=== PATIENT | male | born 1940 | race Caucasian/White ===

== ENCOUNTER → 2016-02-21 | Outpatient (CLI) | payer MEDICARE ==
--- NOTE | 2016-02-21 15:50 | US ---
EXAMINATION TYPE: US bladder DATE OF EXAM: 02/21/2016 3:33 PM COMPARISON: NONE CLINICAL HISTORY: nocturia EXAM MEASUREMENTS: full bladder volume: 143.23ml Post Void Residual Volume: 69.9ml Transabdominal pelvic ultrasound scanning performed. Color Doppler performed to assess ureteral jets. Bilateral Jets seen: yes Normal Post Void Residual (less than 50ml): no The prostate is enlarged and shows an inferior impression on the bladder. Postvoid residual volume is elevated. IMPRESSION: Correlate for bladder outlet obstruction.
== END ==
LOC: RADUSWWP 15:01
PROVIDERS: ATTEND Family Medicine
DX: R35.1 Nocturia (principal)
CPT/HCPCS: 76857

== ENCOUNTER → 2017-04-24 | Outpatient (CLI) | payer MEDICARE ==
[2017-04-24 13:30] LABS: Blood Urea Nitrogen 12 mg/dL (9-20)
--- NOTE | 2017-04-24 23:23 | CT ---
EXAMINATION TYPE: CT angio abdomen DATE OF EXAM: 04/24/2017 COMPARISON: 05/26/2013 HISTORY: 77-year-old male follow up abdominal aortic aneurysm. CT DLP: 1033 mGycm, Automated Exposure Control for Dose Reduction was Utilized. Technique: CT scan of the abdomen is performed with IV Contrast, patient injected with 100 mL of Omni paque 350. Coronal and sagittal MIP reconstructions performed. 3-D reconstructions generated on a [employer] workstation. FINDINGS: Heart is normal size without pericardial effusion. Some strandy atelectasis at the inferior lingula. No pleural effusion. Tiny hiatal hernia. Ectatic descending thoracic aorta at 2.8 cm. There is eccentric irregular plaque anteriorly at the di aphragmatic hiatus and a possible severe stenosis at the celiac artery origin. Replaced right hepatic artery from the SMA. SMA origin is patent. Patent mejía bilateral renal ar teries. Bilobed infrarenal AAA with the more superior aneurysm spanning 5.4 cm measuring 4.7 x 4.6 cm on heide nal and sagittal series, respectively. There is prominent circumferential plaque and thrombus narrowi ng the patent lumen to 2.8 cm. Enlarged from 3.4 cm, previously. The more inferior aneurysm extends 3.5 cm to the bifurcation measuring 3.6 x 3.2 cm on coronal and sa gittal series, respectively. Crescentic plaque and thrombus is present. Enlarged from 2.7 cm, previou sly. Moderate atherosclerotic calcifications continue into the iliac arteries. There is ectasia 1.9 cm of the right common iliac artery and a 1.7 cm of the left common iliac artery. Tiny subcentimeter hypodensity left hepatic dome too small for accurate CT characterization, probable cyst. Gallbladder, adrenal glands, left kidney, spleen, and pancreas show no gross abnormality. A 1.8 cm right lateral cortical cyst is slightly enlarged in the interval. Scattered nonenlarged mesenteric lymph nodes. No mesenteric or retroperitoneal lymphadenopathy. Scattered mild stool burden without pericolonic inflammatory change. Small fatty umbilical hernia. Bones: Degenerative changes at the SI joints and within the lower lumbar spine. No osseous destructiv e process. IMPRESSION: 1. Two consecutive fusiform infrarenal AAA's. The more superior aneurysm measures 4.7 cm increased f rom 3.4 cm in 2014 and has prominent circumferential plaque/thrombus narrowing the lumen to 2.8 cm. 2. The more inferior aneurysm extends to the bifurcation measuring 3.6 cm versus 2.7 cm, previously. 3. Ectatic common iliac arteries measuring 1.9 and 1.7 cm on the right and left sides, respectively. 4. Continued irregular plaque along the anterior wall of the upper abdominal aorta. However, there no w appears to be severe stenosis at the celiac artery origin.
== END | disposition home or self-care (01) ==
LOC: RADCTMAIN 12:44
PROVIDERS: ATTEND Thoracic Surgery (Cardiothoracic Vascular Surgery)
DX: I71.4 Abdominal aortic aneurysm, without rupture (principal); I72.3 Aneurysm of iliac artery
CPT/HCPCS: 82565; 84520; 74175; 36415; Q9967

== ENCOUNTER → 2018-09-01 | Day surgery (SDC) | payer MEDICARE ==
[2018-08-31 10:34] VITALS: BMI 29.1
[~2018-09-01] MED LIST: LACTATED RINGERS 1,000 ML IV SCH; LIDOCAINE 1% 20 ML VIAL (10MG/ML) FOR IV START INTRADERMA ONE; LIDOCAINE 1% INJ 10MG/ML (20 ML MDV) ONE; PROPOFOL 10 MG/ML 20 ML VIAL IV ONE; fentaNYL (PF) 50 MCG/ML 2 ML AMP ONE
[2018-09-01 11:24] VITALS: TEMP 98.5
--- NOTE | 2018-09-01 13:15 | P.PCN ---
Date of Procedure: 09/01/18 Description of Procedure: BRIEF HISTORY: Patient is a 78-year-old, pleasant, male who is seen for outpatient EGD. Has had approximately 10 months of abdominal pain. Previous visit to the ER with computed tomography scan performed showed no acute changes. He does have a history of chronic reflux treated with diet and lifestyle modifications as well as Prilosec. Increasing Prilosec to twice daily did not improve symptoms. He denied any dysphagia or odynophagia. Reports losing 20 pounds in the past year. PROCEDURE PERFORMED: Esophagogastroduodenoscopy with biopsy. PREOPERATIVE DIAGNOSIS: Epigastric abdominal pain, nausea, unintentional weight loss. ESTIMATED BLOOD LOSS: Minimal. IV sedation per anesthesia. PROCEDURE: After informed consent was obtained, the patient was brought into the endoscopy unit. IV sedation was administered by Anesthesia under continuous monitoring. Initially the Olympus GIF-190 video endoscope was inserted into the mouth. Esophagus intubated without any difficulty. It was gradually advanced into the stomach and duodenum and carefully examined. The bulb and the second part of the duodenum appeared normal, with biopsies taken. The scope at this time was withdrawn to the stomach, adequately insufflated with air, and upon careful examination, mucosa of the antrum, body, cardia and the fundus appeared normal, except for diffuse mild erythema in the antrum and body suggestive of mild gastritis with biopsies taken. The scope was then withdrawn into the esophagus. The GE junction was located at 421 cm from the incisors. The esophagus appeared normal. There were no erosions or ulcerations seen and the patient tolerated the procedure well. IMPRESSION: 1. Mild gastritis antrum body, biopsied. 2. Duodenal biopsies. RECOMMENDATIONS: The findings of this examination were discussed with the patient and his friend. Okay to resume diet. Await pathology from biopsies. Continue current medical management. May benefit from colonoscopy given remote history of last procedure and persistence of symptoms if clinically the patient does not improve.
[2018-09-01 13:42] VITALS: BP 148/68; PULSE 69; RESP 18
== END | disposition home or self-care (01) ==
LOC: ORWHC2ENDO 10:56
PROVIDERS: ATTEND Internal Medicine
DX: K29.50 Unspecified chronic gastritis without bleeding (principal); Z87.891 Personal history of nicotine dependence; Z88.8 Allergy status to other drugs, medicaments and biological substances; Z79.899 Other long term (current) drug therapy; E78.5 Hyperlipidemia, unspecified; K21.9 Gastro-esophageal reflux disease without esophagitis
CPT/HCPCS: 88305; 43239; J2001; J3010; J2704

== ENCOUNTER → 2018-11-10 | Outpatient (CLI) | payer MEDICARE ==
--- NOTE | 2018-11-10 16:22 | CT ---
EXAMINATION TYPE: CT angio abdomen pelvis DATE OF EXAM: 11/10/2018 COMPARISON: 10/20/2017 HISTORY: AAA CT DLP: 649.7 mGycm CONTRAST: CTA thoracic and abdominal aorta with 3-D reconstruction is performed without Oral Contrast and with IV Contrast, patient injected with 100 mL of Isovue 300. Contrast CTA of the abdominal aorta was performed from the lung bases through the base of the pelvis. 3-D reconstruction imaging obtained at a separate workstation. CONTRAST CT ABDOMEN AND PELVIS ABDOMINAL AORTA: Renal abdominal aortic aneurysm again noted with 3 cm The renal artery on the right. Aneurysm measures 5.2 cm AP dimension with extensive mural thrombus. L umen is patent. This has progressed slightly from prior AP dimension of 4.9 cm. Aneurysm extends to t he aortic bifurcation. Iliac vessels are ectatic but nonaneurysmal. No evidence for dissection or per iaortic collection. LIVER/GB- No significant abnormality is seen. PANCREAS- No significant abnormality is seen. SPLEEN- No significant abnormality is seen. ADRENALS- No significant abnormality is seen. KIDNEYS/BLADDER-stable right renal cyst. BOWEL- No Significant abnormality GENITAL ORGANS: No gross abnormality seen. LYMPH NODES- No greater than 1cm abdominal or pelvic lymph nodes are appreciated. OSSEOUS STRUCTURES- No significant abnormality is seen. OTHER-containing umbilical hernia. IMPRESSION- Mildly progressive infrarenal abdominal aortic aneurysm at 5.2 cm AP dimension versus 4.9 cm previous ly.
== END ==
LOC: RADCTMAIN 12:51
PROVIDERS: ATTEND Thoracic Surgery (Cardiothoracic Vascular Surgery)
DX: I71.4 Abdominal aortic aneurysm, without rupture (principal)
CPT/HCPCS: 82565; 84520; 36415; 74174; Q9967

== ENCOUNTER → 2019-05-04 | Outpatient (CLI) | payer MEDICARE ==
--- NOTE | 2019-05-04 15:25 | CT ---
EXAMINATION TYPE: CT angio abdomen pelvis DATE OF EXAM: 05/04/2019 COMPARISON: 11/10/2018 HISTORY: Follow up scan per patient CT DLP: 764 mGycm CONTRAST: CTA thoracic and abdominal aorta with 3-D reconstruction is performed without Oral Contrast and with IV Contrast, patient injected with 100 mL of Isovue 370. Contrast CTA of the abdominal aorta was performed from the lung bases through the base of the pelvis . 3-D reconstruction imaging obtained at a separate workstation. . CONTRAST CT ABDOMEN AND PELVIS Lung bases: ABDOMINAL AORTA: Infrarenal abdominal aortic aneurysm redemonstrated with maximal AP dimension curren tly measured at 5.4 cm versus 5.3 cm previously. Mural thrombus noted extending to the level of the b ifurcation. Iliac vessels are ectatic, nonaneurysmal. No evidence for dissection. Visualized branch v essels opacify normally. LIVER/GB- No significant abnormality is seen. PANCREAS- No significant abnormality is seen. SPLEEN- No significant abnormality is seen. ADRENALS- No significant abnormality is seen. KIDNEYS/BLADDER-3 mm nonobstructing calculus mid pole left kidney. Simple cyst midpole right kidney. BOWEL- No Significant abnormality GENITAL ORGANS: No gross abnormality seen. LYMPH NODES- No greater than 1cm abdominal or pelvic lymph nodes are appreciated. OSSEOUS STRUCTURES- No significant abnormality is seen. OTHER- No significant abnormality is seen. IMPRESSION- Infrarenal abdominal aortic aneurysm redemonstrated with maximal AP dimension currently measured at 5.4 cm versus 5.3 cm previously. Mural thrombus noted extending to the level of the bifurcation.
== END | disposition home or self-care (01) ==
LOC: RADCTMAIN 13:14
PROVIDERS: ATTEND Surgery
DX: I74.09 Other arterial embolism and thrombosis of abdominal aorta (principal); I71.4 Abdominal aortic aneurysm, without rupture
CPT/HCPCS: 82565; 84520; 36415; 74174; Q9967

== ENCOUNTER → 2019-07-16 | Outpatient (CLI) | payer MEDICARE | END | disposition home or self-care (01) | LOC: LABWHC1 09:52 | PROVIDERS: ATTEND Surgery | DX: U07.1 COVID-19 (principal) ==

== ENCOUNTER 2019-07-20 05:54 | Inpatient (IN) | payer MEDICARE ==
[2019-07-16 12:07] VITALS: BMI 31.8
[~2019-07-20 05:54] MED LIST changes: +DEXAMETHASONE SOD PHOSPHATE 10 MG/ML 1 ML VIAL IV ONE; +HYDROmorphone 0.5 MG/0.5 ML SYRINGE IVP PRN; +LIDOCAINE 1% (10MG/ML) FOR IV START INTRADERMA PRN; -LIDOCAINE 1% 20 ML VIAL (10MG/ML) FOR IV START INTRADERMA ONE; -LIDOCAINE 1% INJ 10MG/ML (20 ML MDV) ONE; +MIDAZOLAM 2 MG/2 ML VIAL IV PRN; +ONDANSETRON 4 MG/2 ML VIAL IVP ONE; -PROPOFOL 10 MG/ML 20 ML VIAL IV ONE; +SODIUM CHLORIDE 0.9% 1,000 ML in EMPTY BAG 1 BAG IV ONE; -fentaNYL (PF) 50 MCG/ML 2 ML AMP ONE
[2019-07-20] MEDS ORDERED: SODIUM CHLORIDE 0.9% 1,000 ML IV ONE ×2 (06:40→10:57)
[2019-07-20 06:50] LABS: Basophils # (A) 0.1 k/uL (0-0.2); Basophils % (A) 1 %; Eosinophils # (A) 0.4 k/uL (0-0.7); Eosinophils % (A) 4 %; HCT 44.1 % (39.0-53.0); HGB 14.4 gm/dL (13.0-17.5); Lymphocytes # (A) 3.2 k/uL (1.0-4.8); Lymphocytes % (A) 33 %; MCH 30.7 pg (25.0-35.0); MCHC 32.6 g/dL (31.0-37.0); MCV 93.9 fL (80.0-100.0); Mean Platelet Volume 6.8; Monocytes # (A) 0.6 k/uL (0-1.0); Monocytes % (A) 6 %; Neutrophils # (A) 5.3 k/uL (1.3-7.7); Neutrophils % (A) 54 %; Platelet Count 245 k/uL (150-450); RDW 13.4 % (11.5-15.5); WBC 9.7 k/uL (3.8-10.6)
[2019-07-20 06:59] LABS: African American GFR (CKD) >90 (>60 ml/min/1.73 sqM); Anion Gap 9 mmol/L; Blood Urea Nitrogen 14 mg/dL (9-20); Calcium 9.5 mg/dL (8.4-10.2); Carbon Dioxide 27 mmol/L (22-30); Chloride 105 mmol/L (98-107); Glucose 103 mg/dL (74-99); Non-African American GFR(CKD) 83 (>60 ml/min/1.73 sqM); Potassium 4.2 mmol/L (3.5-5.1); Sodium 141 mmol/L (137-145)
[2019-07-20] MEDS ORDERED: ROCURONIUM BROMIDE 10 MG/ML 5 ML VIAL IV ONE (07:28)
[2019-07-20] MEDS ORDERED: PHENYLEPHRINE-0.9% NACL SYG 1 MG/10 ML SYRINGE ONE (07:28)
[2019-07-20] MEDS ORDERED: fentaNYL (PF) 50 MCG/ML 2 ML AMP ONE (07:28)
[2019-07-20] MEDS ORDERED: HYDROmorphone (PF) 1 MG/ML ONE (07:28)
[2019-07-20] MEDS ORDERED: MIDAZOLAM 2 MG/2 ML VIAL ONE (07:28)
[2019-07-20] MEDS ORDERED: PROPOFOL 10 MG/ML 20 ML VIAL IV ONE (07:28)
[2019-07-20] MEDS ORDERED: LIDOCAINE 1% INJ 10MG/ML (20 ML MDV) ONE (07:28)
[2019-07-20] MEDS ORDERED: NEOSTIGMINE 1 MG/ML 10 ML VIAL ONE (07:28)
[2019-07-20] MEDS ORDERED: HEPARIN SODIUM,PORCINE 10,000 UNIT/ML 1 ML VIAL ONE (07:28)
[2019-07-20] MEDS ORDERED: GLYCOPYRROLATE 0.2 MG/ML 2 ML VIAL ONE (07:28)
[2019-07-20] MEDS ORDERED: SUCCINYLCHOLINE CHLORIDE 100 MG/5 ML SYR IV ONE (07:28)
[2019-07-20] MEDS ORDERED: LIDOCAINE 1% INJ 10MG/ML (20 ML MDV) SQ ONE (08:16)
[2019-07-20] MEDS ORDERED: HYDROcodone/APAP 5-325MG 1 EACH TAB PO PRN (09:56)
--- NOTE | 2019-07-20 09:56 | P.OP ---
Date of Procedure: 07/20/19 Preoperative Diagnosis: Infrarenal AAA 6.1 cm Postoperative Diagnosis: Infrarenal AAA 6.1 cm status post EVAR with small type II endoleak Procedure(s) Performed: 1. Endovascular aortic repair with ovation Ix device 2. Ultrasound-guided access of bilateral common femoral arteries 3. Percutaneous closure device placement bilateral femoral arteries Implants: Ovation graft Anesthesia: GETA Surgeon: Rhett Sebastian Apartment Leasing Agent #1: Sonya Bay Estimated Blood Loss (ml): 20 IV fluids (ml): 1,100 Urine output (ml): 250 Pathology: none sent Condition: stable Disposition: PACU Indications for Procedure: 79-year-old gentleman with history of infrarenal AAA now measuring 6.1 cm presents to the hospital for endovascular aortic repair. Operative Findings: Large infrarenal AAA Description of Procedure: After written informed consent was obtained the patient all risks benefits competitions were described the patient is brought to the endovascular suite and laid in a supine position. The area of the groins were prepped and draped in usual sterile fashion after appropriate anesthetic was performed per the anesthesiologist. A timeout was performed in normal fashion antibiotics were administered prior to incisions. Utilizing ultrasound the bilateral common femoral arteries were located and shown to have no stenosis and were patent. Utilizing a multipurpose needle and ultrasound the femoral arteries were cannulated. Guidewires were placed followed by 2 Perclose closure devices in each femoral artery were placed in normal fashion. 8-Polish sheaths were then placed in each groin and heparin was administered followed by serial ACTs. 035 Glidewire was then placed up the left femoral sheath followed by pigtail c atheter. The right Glidewire was replaced with a stiff Lunderquist wire which was placed at the descending aorta. A 26 mm ovation main body was then guided over the Lunderquist wire after removal of the 8-Polish sheath and placed at the L1 vertebra level. Utilizing the pigtail catheter and aortogram was obtained demonstrating good visualization of the renal arteries just above the aneurysm. The main body was then deployed in normal fashion just beneath the left renal artery which was the lowest. Once deployed polymer was placed and visualized under fluoroscopy. The Lunderquist wire was pulled into the graft to allow for good molding of the polymer. Pigtail catheter and Glidewire was withdrawn into the distal aorta. Utilizing the Glidewire the contralateral limb was cannulated followed by pigtail catheter which was spun to ensure cannulation. The pigtail catheter spun easily. A stiff Lunderquist wire was then placed through the pigtail catheter and the catheter was withdrawn to the fourth ring of the device and retrograde angiogram was obtained through the left femoral sheath and measurements were performed for contralateral limb. The contralateral limb was chosen to be a 16 x 160 mm device and this was placed in normal fashion. Once completed a Q50 balloon was placed over the Lunderquist and after 14 minutes were allowed to elapse the main body was finally deployed. Once deployed the Lunderquist wire was replaced into the descending aorta and the deployment sheath was removed on the right femoral. Due to the balloon was then utilized to mold the polymer. Pigtail catheter was then placed at the right femoral sheath and aligned with the half ring of the device and a retrograde angiogram was obtained demonstrating good visualization of the internal iliac artery. A 22 x 120 mm limb was chosen and this was deployed in normal fashion. Once completed balloon angioplasty throughout the entirety of the graft as well as the polymer ring once again was performed molding the graft through its entirety. This was done on one side with a 10 x 40 mm balloon as well as the Q50 on the other side. Final angiogram was then obtained after placement of the pigtail catheter above the graft demonstrating no evidence of a type I or type III endoleak. Lateral angiogram was also obtained which demonstrated a small type II endoleak coming from a inferior lumbar artery. At this time all guidewires and catheters were removed the sheath was removed and Perclose closure devices were secured for hemostasis area the right side hemostasis was obtained but the left had some bruising and therefore an 8-Polish Angio-Seal was utilized for hemostasis. Once hemostatic the area was cleansed and dressings were placed. Patient tolerated procedure well had palpable DP pulses at the conclusion of the procedure and was sent to PACU for recovery.
[2019-07-20] MEDS ORDERED: IOPAMIDOL-370 100ML BTL INJ ONE (10:03)
[2019-07-20 11:18] LABS: Glucose,Whole Blood 102 mg/dL (75-99)
[2019-07-20] MEDS: SODIUM CHLORIDE 0.9% 1,000 ML IV SCH ×2 (12:00→22:58)
[2019-07-20 12:27] LABS: Basophils % (A) 0 %; Eosinophils # (A) 0.2 k/uL (0-0.7); Eosinophils % (A) 2 %; HCT 43.1 % (39.0-53.0); HGB 13.2 gm/dL (13.0-17.5); Hypochromasia Slight; Lymphocytes # (A) 2.3 k/uL (1.0-4.8); Lymphocytes % (A) 24 %; MCH 29.4 pg (25.0-35.0); MCHC 30.7 g/dL (31.0-37.0); MCV 95.7 fL (80.0-100.0); Mean Platelet Volume 6.9; Monocytes # (A) 0.5 k/uL (0-1.0); Monocytes % (A) 5 %; Neutrophils # (A) 6.4 k/uL (1.3-7.7); Neutrophils % (A) 67 %; Platelet Count 191 k/uL (150-450); RBC 4.51 m/uL (4.30-5.90); RDW 13.6 % (11.5-15.5); WBC 9.5 k/uL (3.8-10.6)
[2019-07-20 12:49] LABS: African American GFR (CKD) >90 (>60 ml/min/1.73 sqM); Anion Gap 6 mmol/L; Blood Urea Nitrogen 12 mg/dL (9-20); Calcium 8.7 mg/dL (8.4-10.2); Carbon Dioxide 26 mmol/L (22-30); Chloride 107 mmol/L (98-107); Glucose 115 mg/dL (74-99); Non-African American GFR(CKD) 87 (>60 ml/min/1.73 sqM); Potassium 4.4 mmol/L (3.5-5.1); Sodium 139 mmol/L (137-145)
[2019-07-20] MEDS ORDERED: ONDANSETRON 4 MG/2 ML VIAL IVP PRN (13:56)
--- NOTE | 2019-07-20 15:19 | IR ---
Fluoroscopy HISTORY: Abdominal aortic aneurysm 18.4 minutes fluoroscopy time supplied to the referring clinician. 360 intraoperative C-arm images d ocument the procedure. See dictated report from vascular surgery.
[2019-07-20] MEDS: MAG HYDROX/AL HYDROX/SIMETH 30 ML CUP PO PRN (18:34)
[2019-07-20] MEDS ORDERED: ATORVASTATIN 20 MG TAB PO SCH (21:00)
[2019-07-21] MEDS: MAG HYDROX/AL HYDROX/SIMETH 30 ML CUP PO PRN (03:56)
[2019-07-21 05:49] LABS: Basophils % (A) 0 %; Eosinophils # (A) 0.1 k/uL (0-0.7); Eosinophils % (A) 1 %; HCT 38.3 % (39.0-53.0); Lymphocytes # (A) 1.6 k/uL (1.0-4.8); Lymphocytes % (A) 15 %; MCH 29.8 pg (25.0-35.0); MCHC 31.3 g/dL (31.0-37.0); MCV 95.2 fL (80.0-100.0); Mean Platelet Volume 7.2; Monocytes % (A) 9 %; Neutrophils # (A) 7.8 k/uL (1.3-7.7); Neutrophils % (A) 73 %; Platelet Count 169 k/uL (150-450); RBC 4.03 m/uL (4.30-5.90); RDW 13.6 % (11.5-15.5); WBC 10.7 k/uL (3.8-10.6)
[2019-07-21 06:03] LABS: African American GFR (CKD) >90 (>60 ml/min/1.73 sqM); Anion Gap 6 mmol/L; Blood Urea Nitrogen 13 mg/dL (9-20); Carbon Dioxide 27 mmol/L (22-30); Chloride 104 mmol/L (98-107); Glucose 102 mg/dL (74-99); Non-African American GFR(CKD) >90 (>60 ml/min/1.73 sqM); Potassium 4.1 mmol/L (3.5-5.1); Sodium 137 mmol/L (137-145)
[2019-07-21] MEDS ORDERED: PANTOPRAZOLE 40 MG TABLET PO SCH (07:30)
[2019-07-21] MEDS ORDERED: CHOLECALCIFEROL 1,000 UNIT TAB PO SCH (09:00)
[2019-07-21] MEDS ORDERED: FINASTERIDE 5 MG TAB PO SCH (09:00)
[2019-07-21] MEDS ORDERED: MULTIVITAMINS, THERA 1 EACH TAB PO SCH (09:00)
[2019-07-21] MEDS ORDERED: ASPIRIN 81 MG PO SCH (09:00)
[2019-07-21] MEDS ORDERED: ASCORBIC ACID 500 MG TAB PO SCH (09:00)
--- NOTE | 2019-07-21 09:43 | P.PN ---
Subjective Progress Note Date: 07/21/19 Patient seen and examined in the ICU. Patient is sitting up at the bedside without any complaints. There were no acute changes through the night. Patient ate breakfast is tolerating well. States no chest pain or shortness of breath. No bleeding from either femoral sites. Patient states he had some mild discomfort from acid reflux last night however was treated with medication which relieved the symptoms. Likely catheter has been discontinued. Arterial line remains intact. Objective - Vital Signs Vital signs: Vital Signs Temp 98.2 F 07/21/19 08:00 Pulse 77 07/21/19 08:00 Resp 16 07/21/19 08:00 BP 128/70 07/21/19 08:00 Pulse Ox 97 07/21/19 08:00 Intake & Output 07/20/19 07/21/19 07/21/19 18:59 06:59 18:59 Intake Total 1480 960 160 Output Total 1185 495 210 Balance 295 465 -50 Weight 106.1 kg Intake: IV 1480 960 160 Sodium Chloride 0.9% 1, 480 960 160 000 ml @ 80 mls/hr IV . [id number] [facility] Rx#:[id number] Output: Urine 1185 495 210 Other: Voiding Method Indwelling Catheter Indwelling Catheter Indwelling Catheter ABP, PAP, CO, CI - Last Documented Arterial Blood Pressure 121/84 - Exam General appearance: The patient is alert, oriented, in no acute distress. Sitting up in chair. HET: Head is normocephalic and atraumatic. Pupils are equal and reactive. Oropharynx is clear without lesions. Neck: Supple without lymphadenopathy. Trachea midline. Heart: S1 S2. Regular rate and rhythm. Lungs: No crackles or wheezes are heard. Abdomen: Soft, nontender, nondistended with bowel sounds. No peritoneal signs. No palpable organomegaly or masses. Extremities: Normal skin color and turgor. No cyanosis, rash, ulceration, clubbing, or edema. Radial and pedal pulses are 2/4 bilaterally. Bilateral femoral sites with pressure dressing, no active bleeding. Neurological: No focal deficits. Strength and sensation are grossly intact. - Labs CBC & Chem 7: 07/21/19 05:23 07/21/19 05:23 Labs: Abnormal Lab Results - Last 24 Hours (Table) 07/20/19 07/20/19 07/20/19 Range/Units 11:16 12:09 12:09 WBC (3.8-10.6) k/uL RBC (4.30-5.90) m/uL Hgb (13.0-17.5) gm/dL Hct (39.0-53.0) % MCHC 30.7 L (31.0-37.0) g/dL Neutrophils # (1.3-7.7) k/uL Glucose 115 H (74-99) mg/dL POC Glucose (mg/dL) 102 H (75-99) mg/dL 07/21/19 07/21/19 Range/Units 05:23 05:23 WBC 10.7 H (3.8-10.6) k/uL RBC 4.03 L (4.30-5.90) m/uL Hgb 12.0 L (13.0-17.5) gm/dL Hct 38.3 L (39.0-53.0) % MCHC (31.0-37.0) g/dL Neutrophils # 7.8 H (1.3-7.7) k/uL Glucose 102 H (74-99) mg/dL POC Glucose (mg/dL) (75-99) mg/dL Assessment and Plan Assessment: 1. Abdominal aortic aneurysm measuring 6.1 cm with small type II william leak status post endorevascular aortic repair, post op day #1. Plan: Patient is doing well status post endovascular aortic repair. Bay catheter has been discontinued. Patient is tolerating diet. Continue with ambulation. Dr. Bay to evaluate patient this afternoon. Further recommendations to follow. The above dictated assessment and findings were discussed with Dr. Bay. The impression and plan of care have been directed as dictated.
[2019-07-21 12:08] VITALS: BP 118/62; PULSE 71; RESP 14; TEMP 98.5
--- NOTE | 2019-07-21 12:18 | P.DS ---
Providers Date of admission: 07/20/19 05:54 Expected date of discharge: 07/21/19 Attending physician: Rhett Sebastian DO Consults: 07/20/19 05:38 Consult to Anesthesia Routine Consulting Provider: Anesthesia,Services Consult Reason/Comments: General anesthesia for Aortic Stent procedure 07/20/19 09:56 Consult Physician Routine Consulting Provider: Jos Garcia Consult Reason/Comments: medical management Do you want consulting provider notified?: Yes Primary care physician: Jos Garcia Hospital Course: The patient was brought in for outpatient endovascular aortic repair for an abdominal aortic aneurysm measuring 6.[address] Sebastian. He was found to have a small type II endoleak. Patient is doing well postop. Vital signs have been stable. He has no signs of bleeding. Assessment: General appearance: The patient is alert, oriented, in no acute distress. HET: Head is normocephalic and atraumatic. Pupils are equal and reactive. Oropharynx is clear without lesions. Neck: Supple without lymphadenopathy. Trachea midline. Heart: S1 S2. Regular rate and rhythm. Lungs: No crackles or wheezes are heard. Abdomen: Soft, nontender, nondistended with bowel sounds. No peritoneal signs. Extremities: Normal skin color and turgor. No cyanosis, rash, ulceration, clubbing, or edema. Radial and pedal pulses are 2/4 bilaterally. Bilateral groins with dry and intact pressure dressings, no active bleeding noted, no hematoma is noted. Patient has active range of motion of bilateral lower extremities. Neurological: No focal deficits. Strength and sensation are grossly intact. 1. Abdominal aortic aneurysm measuring 6.1 cm with small type II endovascular leak, status postop day 1 for endovascular aortic repair Patient was seen and examined this morning sitting up in a bedside chair. Patient tolerated breakfast well. Vital signs have remained stable. There were no acute changes through the night. A-line and Bay catheter had been discontinued. Patient is waiting to void and then may be discharged. We discussed no strenuous activity, may shower tomorrow, no tub baths. Will follow up with Dr. Sebastian 1-2 weeks. Procedures: Endovascular aortic repair Patient Condition at Discharge: Good Plan - Discharge Summary Discharge Rx Participant: No New Discharge Prescriptions: New Aspirin 81 mg PO DAILY #30 chew Continue Simvastatin [Zocor] 40 mg PO HS Cholecalciferol [Vitamin D3 (25 Mcg = 1000 Iu)] 2,000 unit PO DAILY Omeprazole [PriLOSEC] 40 mg PO DAILY Finasteride [Proscar] 5 mg PO DAILY Multivitamins, Thera [Multivitamin (formulary)] 1 tab PO DAILY Ascorbic Acid/Ascorbate Sodium [Vitamin C 250 mg Tablet Chew] 250 mg PO DAILY Discharge Medication List Cholecalciferol [Vitamin D3 (25 Mcg = 1000 Iu)] 2,000 unit PO DAILY 04/11/14 [History] Simvastatin [Zocor] 40 mg PO HS 04/11/14 [History] Finasteride [Proscar] 5 mg PO DAILY 10/20/17 [History] Omeprazole [PriLOSEC] 40 mg PO DAILY 10/20/17 [History] Ascorbic Acid/Ascorbate Sodium [Vitamin C 250 mg Tablet Chew] 250 mg PO DAILY 07/16/19 [History] Multivitamins, Thera [Multivitamin (formulary)] 1 tab PO DAILY 07/16/19 [History] Aspirin 81 mg PO DAILY #30 chew 07/21/19 [Rx] Follow up Appointment(s)/Referral(s): Rhett Sebastian DO [STAFF PHYSICIAN] - 1 Week (1-2 weeks) Jos Garcia MD [Primary Care Provider] - 1 Week Activity/Diet/Wound Care/Special Instructions: No tub baths, may shower tomorrow. No heavy lifting or strenuous activity until further evaluation by Dr. Sebastian at follow-up appointment. May apply Band-Aids to bilateral access sites. Discharge Disposition: HOME SELF-CARE
--- NOTE | 2019-07-21 16:23 | PN ---
PROGRESS NOTE DATE OF SERVICE: 07/21/2019 CHIEF COMPLAINT: Abdominal aortic aneurysm. HISTORY OF PRESENT ILLNESS: This gentleman is doing well postop. He has had no problems. He has had no abdominal pain, back pain, chest pain, difficulty lower extremities, etc. PHYSICAL EXAMINATION: Vital signs are normal. He is afebrile. Color is good. Chest is clear. Cardiac exam is normal and. Abdomen is soft and nontender. Extremities are normal. IMPRESSION: Status post endovascular repair of abdominal aortic aneurysm. PLAN: Probably home later today. MMODL / IJN: [id number] /
--- NOTE | 2019-07-21 17:38 | CONS ---
CONSULTATION CHIEF COMPLAINT: Abdominal aortic aneurysm. HISTORY OF PRESENT ILLNESS: This gentleman is brought in for an elective transvascular repair of his abdominal aortic aneurysm. REVIEW OF SYSTEMS: He has had no recent abdominal pain, back pain, problems of his lower extremities, headaches, chest pain, shortness of breath, palpitations, abdominal pain, etc. He has had no nausea, vomiting, hematemesis, melena, hematochezia, jaundice, renal failure, hematuria frequency came urgency and dysuria, etc. Past medical history, family history and personal and social histories reveal that he CANNOT TAKE ALPHA BLOCKERS. USUAL MEDICATIONS INCLUDE: Omeprazole 40 mg once a day, finasteride 5 mg once a day, meclizine 12.5 q.i.d. p.r.n., simvastatin 40 hs, vitamin D. He has some problems with gastritis, but otherwise has been relatively healthy. He used to smoke but he has quit. He does not drink. PHYSICAL EXAMINATION: VITAL SIGNS: Blood pressure is 132/80, pulse 96, respirations of 18. He is afebrile. GENERAL: In general, he appeared to be well developed, well nourished, in no acute distress. SKIN color is normal. Skin is warm, dry. Lymph nodes are not enlarged. HEENT: Head, ears, eyes, nose, mouth, and throat were normal. NECK: Neck veins not distended. Carotids normal. CHEST is clear and the cardiac exam demonstrates normal sinus rhythm and no murmurs or extra sounds. ABDOMEN is flat, soft and nontender without any visceromegaly or masses. Aneurysm is not palpable. Bowel sounds present. EXTREMITIES normal. NEUROLOGICAL is intact. IMPRESSION: He is admitted to the hospital with diagnoses of: 1. Abdominal aortic aneurysm. 2. Hyperlipidemia. 3. History of gastritis. RECOMMENDATION: None. He is stable and a good risk for the surgical procedure proposed. Thank you for this consultation. MMODL / IJN: [id number] /
== END 2019-07-21 13:48 | disposition home or self-care (01) | DRG 269 ==
LOC: 2ORMAIN 05:54 → 2SICU 09:42
PROVIDERS: ADMIT Surgery; ATTEND Surgery
PROC: B4101ZZ Fluoroscopy of Abdominal Aorta using Low Osmolar Contrast (ICD-10-PCS; principal; 2019-07-20 07:30)
PROC: 04V03DZ Restriction of Abdominal Aorta with Intraluminal Device, Percutaneous Approach (ICD-10-PCS; principal; 2019-07-20 07:30)
DX: I71.4 Abdominal aortic aneurysm, without rupture (principal); E78.5 Hyperlipidemia, unspecified; K29.70 Gastritis, unspecified, without bleeding; I10 Essential (primary) hypertension; N40.0 Benign prostatic hyperplasia without lower urinary tract symptoms; K21.9 Gastro-esophageal reflux disease without esophagitis; Z79.899 Other long term (current) drug therapy; Z88.8 Allergy status to other drugs, medicaments and biological substances; Z87.891 Personal history of nicotine dependence; Z82.0 Family history of epilepsy and other diseases of the nervous system
CPT/HCPCS: 34705; 80048; 85025; 85347; 86850; 86900; 86901

== ENCOUNTER → 2019-09-02 | Outpatient (CLI) | payer MEDICARE ==
--- NOTE | 2019-09-02 15:30 | CT ---
EXAMINATION TYPE: CT angio abdomen pelvis DATE OF EXAM: 09/02/2019 COMPARISON: CT May 04, 2019 and older CTs HISTORY: Follow up for AAA repair CT DLP: 1766.1 mGycm, Automated Exposure Control for Dose Reduction was Utilized. CONTRAST: CTA scan of the abdomen and pelvis is performed without oral and without and with IV Contrast, patien t injected with 100 mL of Isovue 370. Aneurysm protocol with 3-D reconstructed images creatinine inde pendent workstation and reviewed. FINDINGS: VASCULAR: New metallic stent graft begins just above the level of the celiac artery. There is redemon stration of infrarenal AAA measuring up to 5.8 cm transversely axial image 38 series 5 perhaps slight ly larger from prior studies. Postcontrast images show poor visualization of origin of celiac artery similar to prior study with some reconstitution, suspect marked narrowing or complete occlusion with retrograde filling. This in retrospect has been present over the last 2 CTA studies. Patent SMA redem onstrated. Patent bilateral single renal arteries. Occluded ELVIA with retrograde filling. There is pat ent aortobiiliac stent graft terminating before the common iliac bifurcation. No extraluminal enhance ment identified to suggest endoleak. LUNG BASES: Coronary artery calcification is present which is noted marked underlying coronary artery disease. LIVER/GB: No significant abnormality is appreciated. PANCREAS: No significant abnormality is seen. SPLEEN: No significant abnormality is seen. ADRENALS: No significant abnormality is seen. KIDNEYS: Simple appearing 2.1 cm thin-walled cyst right kidney laterally midpole level. Stable 4 mm n onobstructing calculus left kidney midpole level axial image 29 series 5 BOWEL: No significant abnormality is seen. PROSTATE/SEMINAL VESICLES: Mildly enlarged. LYMPH NODES: No greater than 1cm abdominal or pelvic lymph nodes are appreciated. OSSEOUS STRUCTURES: Moderate to multilevel spurring in the spine. OTHER: No significant additional abnormality is seen. IMPRESSION: Interval placement of aortobiiliac stent graft. Patency noted. [place] AAA measures up to 5.8 cm transversely on current study perhaps slightly more prominent as I get measurements of 5.6 cm prior study. No CT evidence for endoleak. 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
== END | disposition home or self-care (01) ==
LOC: RADCTMAIN 13:39
PROVIDERS: ATTEND Surgery
DX: I71.4 Abdominal aortic aneurysm, without rupture (principal)
CPT/HCPCS: 82565; 84520; 36415; 74174; Q9967

== ENCOUNTER 2020-07-09 14:58 | Emergency (ER) | payer MEDICARE ==
[2020-07-09 15:02] VITALS: RESP 18; TEMP 98.6
[2020-07-09] MEDS ORDERED: SODIUM CHLORIDE 0.9% 500 ML 500 ML IV STA (15:33)
[2020-07-09] MEDS ORDERED: ACETAMINOPHEN TAB 325 MG TAB PO STA (15:34)
--- NOTE | 2020-07-09 15:37 | ED ---
General Adult HPI - General Chief complaint: Dizziness Stated complaint: Dizzness Time Seen by Provider: 07/09/20 15:03 Source: patient Mode of arrival: wheelchair Limitations: no limitations - History of Present Illness Initial comments: This patient is an 80-year-old man who presents to be evaluated for right mandibular swelling and pain. The patient notes that he had a bit of a fall on . He states that he was standing, felt somewhat dizzy and then rolled backwards onto his back and then to the side onto his right mandible. Patient's had been having some pain but did not want to be seen until he spoke with an associate today who convinced him because of the swelling to have an evaluation. The patient states there was some pain at the upper portion of his neck and the back of his head but this seems to be doing better. The patient had also been having episodes of what he describes as dizziness, though there may be an element of vertigo associated. He states that that had been better today and he is not having those symptoms now. -: days(s) Location: head, face Radiation: non-radiation Quality: aching Consistency: now resolved Improves with: none Worsens with: none Associated Symptoms: denies other symptoms Treatments Prior to Arrival: none - Related Data Home Medications Medication Instructions Recorded Confirmed Cholecalciferol [Vitamin D3 (25 2,000 unit PO DAILY 04/11/14 07/20/19 Mcg = 1000 Iu)] Simvastatin [Zocor] 40 mg PO HS 04/11/14 07/20/19 Finasteride [Proscar] 5 mg PO DAILY 10/20/17 07/20/19 Omeprazole [PriLOSEC] 40 mg PO DAILY 10/20/17 07/20/19 Ascorbic Acid [Vitamin C] 250 mg PO DAILY 07/16/19 07/20/19 Multivitamins, Thera [Multivitamin 1 tab PO DAILY 07/16/19 07/20/19 (formulary)] Previous Rx's Medication Instructions Recorded Aspirin 81 mg PO DAILY #30 chew 07/21/19 Amoxicillin/Potassium Clav 1 tab PO Q12HR 1 Days #14 tab 07/09/20 [Augmentin 875-125 Tablet] Allergies Allergy/AdvReac Type Severity Reaction Status Date / Time doxazosin Allergy Unknown Verified 07/16/19 11:51 tamsulosin [From Flomax] Allergy Rash/Hives Verified 07/16/19 11:51 Review of Systems ROS Statement: Those systems with pertinent positive or pertinent negative responses have been documented in the HPI. ROS Other: All systems not noted in ROS Statement are negative. Constitutional: Denies: fever, chills Eyes: Denies: eye pain, vision change ENT: Denies: ear pain, hearing loss, congestion Respiratory: Denies: cough, dyspnea Cardiovascular: Denies: chest pain, palpitations, edema, syncope Gastrointestinal: Denies: abdominal pain, vomiting, diarrhea Genitourinary: Denies: hematuria Musculoskeletal: Denies: back pain Skin: Denies: rash Neurological: Reports: headache, vertigo. Denies: weakness, numbness, paresthesias, confusion Past Medical History Past Medical History: COPD, GERD/Reflux, Hyperlipidemia, Prostate Disorder, Pulmonary Embolus (PE), Skin Disorder Additional Past Medical History / Comment(s): AAA-dr. Noel monitoring, PE 5- 6 yrs. ago, intermittent vertigo, epigastric pain History of Any Multi-Drug Resistant Organisms: None Reported Additional Past Surgical History / Comment(s): cyst removed from spine, circumcision as an adult, cataracts removed Past Anesthesia/Blood Transfusion Reactions: Motion Sickness Past Psychological History: Anxiety Smoking Status: Former smoker Past Alcohol Use History: Occasional - Past Family History Sister(s) Family Medical History: Cancer General Exam Limitations: no limitations General appearance: alert, in no apparent distress Head exam: Present: atraumatic, normocephalic Eye exam: Present: normal appearance, PERRL, EOMI. Absent: scleral icterus, conjunctival injection, nystagmus, periorbital swelling, periorbital tenderness ENT exam: Present: normal oropharynx, mucous membranes moist, TM's normal bilaterally, normal external ear exam, other (There is swelling adjacent to the right mandible. Mild tenderness. No obvious deformity.) Neck exam: Present: normal inspection, tenderness (There is some paraspinal tenderness in the upper cervical region), full ROM. Absent: meningismus Respiratory exam: Present: normal lung sounds bilaterally. Absent: respiratory distress, wheezes, rales, rhonchi, stridor, chest wall tenderness Cardiovascular Exam: Present: regular rate, normal rhythm, normal heart sounds. Absent: systolic murmur, diastolic murmur, rubs, gallop GI/Abdominal exam: Present: soft. Absent: distended, tenderness, guarding, rebound, rigid, mass Extremities exam: Present: normal inspection, normal capillary refill. Absent: pedal edema, calf tenderness Back exam: Present: normal inspection. Absent: CVA tenderness (R), CVA tenderness (L), paraspinal tenderness, vertebral tenderness Neurological exam: Present: alert, oriented X3, CN II-XII intact. Absent: motor sensory deficit Skin exam: Present: warm, dry, intact, normal color. Absent: rash Course Vital Signs 07/09/20 07/09/20 14:59 16:44 Temperature 98.6 F Pulse Rate 96 75 Respiratory 18 18 Rate Blood Pressure 168/77 167/96 O2 Sat by Pulse 97 99 Oximetry EKG Findings - EKG Comments: EKG Findings:: Possible old anterior infarct. - EKG Results: EKG: interpreted by DALE, sinus rhythm (With sinus arrhythmia . Rate 89 bpm), normal ST/T - Blocks, [place], Hypertrophy, ST Abn: QRS axis and voltage: left axis deviation (-30 to -90) Medical Decision Making - Medical Decision Making Patient is a 80-year-old man with dizziness and right sided swelling adjacent to the mandible, suspected dental infection. The patient is found to have right- sided mastoiditis. I discussed appropriate treatment with the patient, but he states he cannot stay today. He has received antibiotics here and I will prescribe antibiotics to continue. He'll follow with ear nose and throat. He will return tomorrow if there is no improvement or if there is any worsening, but he states he just cannot stay tonight. - Lab Data Result diagrams: 07/09/20 15:29 07/09/20 15:29 Lab Results 07/09/20 07/09/20 07/09/20 Range/Units 15:29 15:29 15:40 WBC 8.9 (3.8-10.6) k/uL RBC 4.75 (4.30-5.90) m/uL Hgb 14.6 (13.0-17.5) gm/dL Hct 44.4 (39.0-53.0) % MCV 93.5 (80.0-100.0) fL MCH 30.7 (25.0-35.0) pg MCHC 32.8 (31.0-37.0) g/dL RDW 13.0 (11.5-15.5) % Plt Count 227 (150-450) k/uL MPV 6.9 Neutrophils % 67 % Lymphocytes % 24 % Monocytes % 5 % Eosinophils % 2 % Basophils % 0 % Neutrophils # 5.9 (1.3-7.7) k/uL Lymphocytes # 2.2 (1.0-4.8) k/uL Monocytes # 0.4 (0-1.0) k/uL Eosinophils # 0.2 (0-0.7) k/uL Basophils # 0.0 (0-0.2) k/uL Sodium 137 (137-145) mmol/L Potassium 4.0 (3.5-5.1) mmol/L Chloride 103 (98-107) mmol/L Carbon Dioxide 28 (22-30) mmol/L Anion Gap 6 mmol/L BUN 11 (9-20) mg/dL Creatinine 1.00 (0.66-1.25) mg/dL Est GFR (CKD-EPI)AfAm 81 (>60 ml/min/1.73 sqM) Est GFR (CKD-EPI)NonAf 70 (>60 ml/min/1.73 sqM) Glucose 99 (74-99) mg/dL Plasma Lactic Acid Gary (0.7-2.0) mmol/L Calcium 9.7 (8.4-10.2) mg/dL Total Bilirubin 0.3 (0.2-1.3) mg/dL AST 27 (17-59) U/L ALT 18 (4-49) U/L Alkaline Phosphatase 122 (38-126) U/L Total Protein 7.6 (6.3-8.2) g/dL Albumin 4.3 (3.5-5.0) g/dL Urine Color Yellow Urine Appearance Clear (Clear) Urine pH 6.5 (5.0-8.0) Ur Specific [place] 1.008 (1.001-1.035) Urine Protein Negative (Negative) Urine Glucose (UA) Negative (Negative) Urine Ketones Trace H (Negative) Urine Blood Negative (Negative) Urine Nitrite Negative (Negative) Urine Bilirubin Negative (Negative) Urine Urobilinogen <2.0 (<2.0) mg/dL Ur Leukocyte Esterase Negative (Negative) 07/09/20 Range/Units 15:40 WBC (3.8-10.6) k/uL RBC (4.30-5.90) m/uL Hgb (13.0-17.5) gm/dL Hct (39.0-53.0) % MCV (80.0-100.0) fL MCH (25.0-35.0) pg MCHC (31.0-37.0) g/dL RDW (11.5-15.5) % Plt Count (150-450) k/uL MPV Neutrophils % % Lymphocytes % % Monocytes % % Eosinophils % % Basophils % % Neutrophils # (1.3-7.7) k/uL Lymphocytes # (1.0-4.8) k/uL Monocytes # (0-1.0) k/uL Eosinophils # (0-0.7) k/uL Basophils # (0-0.2) k/uL Sodium (137-145) mmol/L Potassium (3.5-5.1) mmol/L Chloride (98-107) mmol/L Carbon Dioxide (22-30) mmol/L Anion Gap mmol/L BUN (9-20) mg/dL Creatinine (0.66-1.25) mg/dL Est GFR (CKD-EPI)AfAm (>60 ml/min/1.73 sqM) Est GFR (CKD-EPI)NonAf (>60 ml/min/1.73 sqM) Glucose (74-99) mg/dL Plasma Lactic Acid Gary 0.9 (0.7-2.0) mmol/L Calcium (8.4-10.2) mg/dL Total Bilirubin (0.2-1.3) mg/dL AST (17-59) U/L ALT (4-49) U/L Alkaline Phosphatase (38-126) U/L Total Protein (6.3-8.2) g/dL Albumin (3.5-5.0) g/dL Urine Color Urine Appearance (Clear) Urine pH (5.0-8.0) Ur Specific [place] (1.001-1.035) Urine Protein (Negative) Urine Glucose (UA) (Negative) Urine Ketones (Negative) Urine Blood (Negative) Urine Nitrite (Negative) Urine Bilirubin (Negative) Urine Urobilinogen (<2.0) mg/dL Ur Leukocyte Esterase (Negative) Disposition Clinical Impression: Mastoiditis, Dental infection Disposition: Left Against Medical Advice Condition: Fair Instructions (If sedation given, give patient instructions): Mastoiditis (ED) Prescriptions: Amoxicillin/Potassium Clav [Augmentin 875-125 Tablet] 1 tab PO Q12HR 1 Days #14 tab Is patient prescribed a controlled substance at d/c from ED?: No Referrals: Jos Garcia MD [Primary Care Provider] - 1-2 days Dami Mcarthur MD [STAFF PHYSICIAN] - 1-2 days Dylan Mckinney DDS [STAFF PHYSICIAN] - 1-2 days
[2020-07-09 15:50] LABS: Basophils % (A) 0 %; Eosinophils # (A) 0.2 k/uL (0-0.7); Eosinophils % (A) 2 %; HCT 44.4 % (39.0-53.0); HGB 14.6 gm/dL (13.0-17.5); Lymphocytes # (A) 2.2 k/uL (1.0-4.8); Lymphocytes % (A) 24 %; MCH 30.7 pg (25.0-35.0); MCHC 32.8 g/dL (31.0-37.0); MCV 93.5 fL (80.0-100.0); Mean Platelet Volume 6.9; Monocytes # (A) 0.4 k/uL (0-1.0); Monocytes % (A) 5 %; Neutrophils # (A) 5.9 k/uL (1.3-7.7); Neutrophils % (A) 67 %; Platelet Count 227 k/uL (150-450); RBC 4.75 m/uL (4.30-5.90); WBC 8.9 k/uL (3.8-10.6)
[2020-07-09 15:59] LABS: Albumin 4.3 g/dL (3.5-5.0); Calcium 9.7 mg/dL (8.4-10.2); Total Bilirubin 0.3 mg/dL (0.2-1.3); Total Protein 7.6 g/dL (6.3-8.2)
--- NOTE | 2020-07-09 16:12 | CT ---
EXAMINATION TYPE: CT brain holden wo con DATE OF EXAM: 07/09/2020 COMPARISON: None HISTORY: Fall 3 days ago. Right mandible swelling. CT DLP: 1469.3 mGycm Automated exposure control for dose reduction was used. Images obtained of the brain and cervical spine without contrast. There is cerebral cortical atrophy. There is no mass effect nor midline shift. There is no sign of in tracranial hemorrhage. The calvarium is intact. There is minimal right-sided mastoiditis. Skull base is intact. Cervical vertebra have normal alignment. Disc spaces are normal for age. Posterior elements are intac t. There is minimal facet arthropathy. There is no compression fracture. I see no bony destructive pr ocess. IMPRESSION: Negative CT scan cervical spine. Minor degenerative changes. Mild cerebral atrophy. No acute intracranial abnormality. Mild right side mastoiditis.
--- NOTE | 2020-07-09 16:14 | XR ---
EXAMINATION TYPE: XR mandible complete DATE OF EXAM: 07/09/2020 COMPARISON: NONE HISTORY: Mandible pain TECHNIQUE: 5 views FINDINGS: Mandibular ring is intact. I see no fracture nor dislocation. Mandibular condyles appear in tact. IMPRESSION: No fracture seen.
[2020-07-09 16:46] LABS: Appearance,Urine Clear (Clear); Bilirubin,Urine Negative (Negative); Blood,Urine Negative (Negative); Color,Urine Yellow; Glucose,Urine (UA) Negative (Negative); Ketones,Urine Trace (Negative); Leukocyte Esterase,Urine Negative (Negative); Nitrite,Urine Negative (Negative); PH, Urine 6.5 (5.0-8.0); Protein,Urine Negative (Negative); Specific Gravity,Urine 1.008 (1.001-1.035); Urobilinogen,Urine <2.0 mg/dL (<2.0)
[2020-07-09 18:26] VITALS: BP 144/89; PULSE 79
== END 2020-07-09 18:31 | disposition left against medical advice (07) ==
LOC: EC 14:58
DX: H70.11 Chronic mastoiditis, right ear (principal); K04.7 Periapical abscess without sinus; J44.9 Chronic obstructive pulmonary disease, unspecified; E78.5 Hyperlipidemia, unspecified; Z86.711 Personal history of pulmonary embolism; Z87.891 Personal history of nicotine dependence
CPT/HCPCS: 36415; 93005; 80053; 83605; 85025; 81003; 87040; 70110; 72125; 70450; 99285; 96365; 96361; J0696

== ENCOUNTER 2022-07-11 11:34 | Emergency (ER) | payer MEDICARE ==
[2022-07-11 11:49] VITALS: PULSE 85; TEMP 98.5
--- NOTE | 2022-07-11 13:14 | CT ---
EXAMINATION TYPE: CT brain holden wo con DATE OF EXAM: 07/11/2022 COMPARISON: 07/09/2020 HISTORY: 82-year-old male pain, fall, trauma CT DLP: 1625 mGycm Automated exposure control for dose reduction was used. Technique: Examination of the head was done in axial plane without intravenous contrast. Coronal and sagittal reconstructions performed. CT of the cervical spine was obtained in axial plane without intravenous injection of contrast mater ial. Coronal and sagittal reformatted images were obtained from the axial views for evaluation of f ractures, spinal alignment and canal. FINDINGS: Head: There is no evidence of acute intracranial hemorrhage, acute ischemic changes, mass, mass-effect, or extra-axial fluid collection. There is no effacement of cerebral sulci or basal subarachnoid cister ns. There is no hydrocephalus. There is no midline shift. Duncan-white matter distinction is preserv ed. There is possible mild posterior scalp contusion. Mild generalized supratentorial volume loss with se condary prominence to the ventricular system. Mild patchy white matter hypodensities in both cerebral hemispheres. Mild mucosal thickening throughout the ethmoid air cells. Rightward nasal septal deviation. Fluid wit hin the mid and inferior right mastoid air cells. Cervical spine: Degenerative change at the C1 dens articulation. Multilevel hypertrophic facet arthropathy. Degenerat syed grade 1 anterolisthesis C4-C5 and C5-C6. Remaining alignment is maintained. There is no cranial v ertebral abnormality. Fracture of the cervical spine is not seen. . No evident canal compromise by CT . There is moderate left neuroforaminal stenosis at C3-C4. Sagittal and coronal reformatted images co nfirm above findings. COMBINED IMPRESSION: 1. There may be a mild posterior scalp contusion. No acute intracranial abnormality seen. Mild genera lized atrophy and mild burden of chronic small vessel ischemic disease. 2. No acute fracture of the cervical spine. Hypertrophic facet arthropathy throughout with degenerati ve grade 1 anterolisthesis at C4-C5 and C5-C6 which is unchanged.
--- NOTE | 2022-07-11 13:25 | ED ---
Fall HPI - General Chief Complaint: Fall Stated Complaint: fall - head laceration - dizziness Time Seen by Provider: 07/11/22 12:02 Source: patient, RN notes reviewed, old records reviewed Mode of arrival: wheelchair Limitations: no limitations - History of Present Illness Initial Comments: 82-year-old male presents emergency Department with chief complaint of fall, head injury. Patient states he was leaving his house states there is small curb states he tripped falling striking his head he states his tetanus is up-to-date. Abrasion on his scalp. Patient states that he has no current headache is worsening states he had mild headache that is now improving. No visual disturbance no focal weakness denies any extremity injury - Related Data Home Medications Medication Instructions Recorded Confirmed Cholecalciferol [Vitamin D3 (25 2,000 unit PO DAILY 04/11/14 07/20/19 Mcg = 1000 Iu)] Simvastatin [Zocor] 40 mg PO HS 04/11/14 07/20/19 Finasteride [Proscar] 5 mg PO DAILY 10/20/17 07/20/19 Omeprazole [PriLOSEC] 40 mg PO DAILY 10/20/17 07/20/19 Ascorbic Acid [Vitamin C] 250 mg PO DAILY 07/16/19 07/20/19 Multivitamins, Thera [Multivitamin 1 tab PO DAILY 07/16/19 07/20/19 (formulary)] Previous Rx's Medication Instructions Recorded Aspirin 81 mg PO DAILY #30 chew 07/21/19 Amoxicillin/Potassium Clav 1 tab PO Q12HR 1 Days #14 tab 07/09/20 [Augmentin 875-125 Tablet] Allergies Allergy/AdvReac Type Severity Reaction Status Date / Time doxazosin Allergy Unknown Verified 07/11/22 11:49 tamsulosin [From Flomax] Allergy Rash/Hives Verified 07/11/22 11:49 Review of Systems ROS Statement: Those systems with pertinent positive or pertinent negative responses have been documented in the HPI. ROS Other: All systems not noted in ROS Statement are negative. Past Medical History Past Medical History: COPD, GERD/Reflux, Hyperlipidemia, Prostate Disorder, Pulmonary Embolus (PE), Skin Disorder Additional Past Medical History / Comment(s): AAA-dr. Noel monitoring, PE 5- 6 yrs. ago, intermittent vertigo, epigastric pain History of Any Multi-Drug Resistant Organisms: None Reported Additional Past Surgical History / Comment(s): cyst removed from spine, circumcision as an adult, cataracts removed Past Anesthesia/Blood Transfusion Reactions: Motion Sickness Past Psychological History: Anxiety Smoking Status: Former smoker Past Alcohol Use History: Occasional Past Drug Use History: None Reported - Past Family History Sister(s) Family Medical History: Cancer General Exam Limitations: no limitations General appearance: alert, in no apparent distress Head exam: Absent: atraumatic, normocephalic, normal inspection (Scalp abrasion, superficial laceration) Eye exam: Present: normal appearance, PERRL, EOMI. Absent: scleral icterus, conjunctival injection, periorbital swelling ENT exam: Present: normal exam, mucous membranes moist Neck exam: Present: normal inspection. Absent: tenderness, meningismus, full ROM (Patient c-collar), lymphadenopathy Respiratory exam: Present: normal lung sounds bilaterally. Absent: respiratory distress, wheezes, rales, rhonchi, stridor Cardiovascular Exam: Present: regular rate, normal rhythm, normal heart sounds. Absent: systolic murmur, diastolic murmur, rubs, gallop, clicks Extremities exam: Present: normal inspection, full ROM, normal capillary refill. Absent: tenderness, pedal edema, joint swelling, calf tenderness Neurological exam: Present: alert, oriented X3, CN II-XII intact, reflexes normal. Absent: motor sensory deficit Course Vital Signs 07/11/22 11:46 Temperature 98.5 F Pulse Rate 85 Respiratory 20 Rate Blood Pressure 172/124 O2 Sat by Pulse 97 Oximetry Medical Decision Making - Medical Decision Making Was pt. sent in by a medical professional or institution (, PA, CORPORATE COORDINATOR, urgent care, hospital, or group home...) When possible be specific @ -No Did you speak to anyone other than the patient for history (EMS, parent, family, police, friend...)? What history was obtained from this source @ -N EMS and family room crying prehospital injury, past medical history o Did you review nursing and triage notes (agree or disagree)? Why? @ -I reviewed and agree with nursing and triage notes Were old charts reviewed (outside hosp., previous admission, EMS record, old EKG, old radiological studies, urgent care reports/EKG's, group home records)? Report findings @ -No old charts were reviewed Differential Diagnosis (chest pain, altered mental status, abdominal pain women, abdominal pain men, vaginal bleeding, weakness, fever, dyspnea, syncope, headache, dizziness, GI bleed, back pain, seizure, CVA, palpatations, mental health, musculoskeletal)? @ -Scalp abrasion, scalp laceration, intracranial hemorrhage, skull fracture, this list is not all-inclusive EKG interpreted by me (3pts min.). @ -None X-rays interpreted by me (1pt min.). @ -None done CT interpreted by me (1pt min.). @ -CT of the brain, C-spine shows no acute fracture no intracranial hemorrhage no masses back there is scalp hematoma noted U/S interpreted by me (1pt. min.). @ -None done What testing was considered but not performed or refused? (CT, X-rays, U/S, labs)? Why? @ -None What meds were considered but not given or refused? Why? @ -None Did you discuss the management of the patient with other professionals (professionals i.e. , PA, CORPORATE COORDINATOR, lab, RT, psych nurse, social media project manager, utility pipe layer, teacher, legal officer, rehabilitation case coordinator)? Give summary @ -No Was smoking cessation discussed for >3mins.? @ -No Was critical care preformed (if so, how long)? @ -No Were there social determinants of health that impacted care today? How? (Homelessness, low income, unemployed, alcoholism, drug addiction, transportation, low edu. Level, literacy, decrease access to med. care, intermediate, rehab)? @ -No Was there de-escalation of care discussed even if they declined (Discuss DNR or withdrawal of care, Hospice)? DNR status @ -No What co-morbidities impacted this encounter? (DM, HTN, Smoking, COPD, CAD, Cancer, CVA, ARF, Chemo, Hep., AIDS, mental health diagnosis, sleep apnea, morbid obesity)? @ -None Was patient admitted / discharged? Hospital course, mention meds given and route, prescriptions, significant lab abnormalities, going to OR and other pertinent info. @ -Discharge patient CT is negative patient is neurologically intact return parameters were discussed Undiagnosed new problem with uncertain prognosis? @ -No Drug Therapy requiring intensive monitoring for toxicity (Heparin, Nitro, Insulin, Cardizem)? @ -No Were any procedures done? @ -No Diagnosis/symptom? @ -Scalp hematoma. Acute, or Chronic, or Acute on Chronic? @ -Acute Uncomplicated (without systemic symptoms) or Complicated (systemic symptoms)? @ -Uncomplicated Side effects of treatment? @ -No Exacerbation, Progression, or Severe Exacerbation? @ -No Poses a threat to life or bodily function? How? (Chest pain, [place], [place], pneumonia, PE, COPD, DKA, ARF, appy, cholecystitis, CVA, Diverticulitis, Homicidal, Suicidal, threat to staff... and all critical care pts) @ -No Disposition Clinical Impression: Fall, Scalp contusion Disposition: HOME SELF-CARE Condition: Stable Instructions (If sedation given, give patient instructions): Scalp Contusion in Adults (ED) Additional Instructions: Please return to the Emergency Department if symptoms worsen or any other concerns. Is patient prescribed a controlled substance at d/c from ED?: No Referrals: Jos Garcia MD [Primary Care Provider] - 1-2 days Time of Disposition: 13:11
[2022-07-11 13:59] VITALS: BP 172/96; RESP 18
== END 2022-07-11 13:59 | disposition home or self-care (01) ==
LOC: EC 11:34
DX: S00.03XA Contusion of scalp, initial encounter (principal); J44.9 Chronic obstructive pulmonary disease, unspecified; E78.5 Hyperlipidemia, unspecified; K21.9 Gastro-esophageal reflux disease without esophagitis; F41.9 Anxiety disorder, unspecified; Z79.899 Other long term (current) drug therapy; Z88.8 Allergy status to other drugs, medicaments and biological substances; Z87.891 Personal history of nicotine dependence; W01.0XXA Fall on same level from slipping, tripping and stumbling without subsequent striking against object, initial encounter; Y92.009 Unspecified place in unspecified non-institutional (private) residence as the place of occurrence of the external cause
CPT/HCPCS: 93005; 72125; 70450; 99284; L0120

== ENCOUNTER 2023-12-13 10:33 | Inpatient (IN) | payer MEDICARE ==
--- NOTE | 2023-12-13 11:02 | ED ---
General Adult HPI - General Chief complaint: Shortness of Breath Stated complaint: SOB Time Seen by Provider: 12/13/23 10:38 Source: patient Mode of arrival: wheelchair Limitations: no limitations - History of Present Illness Initial comments: Dictation was produced using [employer] dictation software. please excuse any grammatical, word or spelling errors. Chief Complaint: 83-year-old male with exertional dyspnea History of Present Illness: Patient is 83-year-old male presents with exertional dyspnea. Patient denies any significant comorbidities. States that he is here today because when he tries to walk he becomes short of breath. Denies any hi story of A-fib. Patient denies any fever, chills or night sweats. No cough. Thought that this was secondary to COPD. Tried using his inhaler with no improvement. Does complain of some mild exertional chest pain. The ROS documented in this emergency department record has been reviewed and confirmed by me. Those systems with pertinent positive or negative responses have been documented in the HPI. All other systems are other negative and/or noncontributory. - Related Data Home Medications Medication Instructions Recorded Confirmed Cholecalciferol [Vitamin D3 (25 2,000 unit PO DAILY 04/11/14 07/20/19 Mcg = 1000 Iu)] Simvastatin [Zocor] 40 mg PO HS 04/11/14 07/20/19 Finasteride [Proscar] 5 mg PO DAILY 10/20/17 07/20/19 Omeprazole [PriLOSEC] 40 mg PO DAILY 10/20/17 07/20/19 Ascorbic Acid [Vitamin C] 250 mg PO DAILY 07/16/19 07/20/19 Multivitamins, Thera [Multivitamin 1 tab PO DAILY 07/16/19 07/20/19 (formulary)] Previous Rx's Medication Instructions Recorded Aspirin 81 mg PO DAILY #30 chew 07/21/19 Amoxicillin/Potassium Clav 1 tab PO Q12HR 1 Days #14 tab 07/09/20 [Augmentin 875-125 Tablet] Allergies Allergy/AdvReac Type Severity Reaction Status Date / Time doxazosin Allergy Unknown Verified 12/13/23 10:37 tamsulosin [From Flomax] Allergy Rash/Hives Verified 12/13/23 10:37 Review of Systems ROS Statement: Those systems with pertinent positive or pertinent negative responses have been documented in the HPI. ROS Other: All systems not noted in ROS Statement are negative. Past Medical History Past Medical History: COPD, GERD/Reflux, Hyperlipidemia, Prostate Disorder, Pulmonary Embolus (PE), Skin Disorder Additional Past Medical History / Comment(s): AAA-dr. Noel monitoring, PE 5- 6 yrs. ago, intermittent vertigo, epigastric pain History of Any Multi-Drug Resistant Organisms: None Reported Additional Past Surgical History / Comment(s): cyst removed from spine, circumcision as an adult, cataracts removed Past Anesthesia/Blood Transfusion Reactions: Motion Sickness Past Psychological History: Anxiety Smoking Status: Former smoker Past Alcohol Use History: Occasional Past Drug Use History: None Reported - Past Family History Sister(s) Family Medical History: Cancer General Exam - General Exam Comments Initial Comments: PHYSICAL EXAM: General Impression: Alert and oriented x3, not in acute distress HEENT: Normocephalic atraumatic, extra-ocular movements intact, pupils equal and reactive to light bilaterally, mucous membranes moist. Cardiovascular: Heart regular rate and rhythm Chest: Able to complete full sentences, no retractions, no tachypnea, clear to auscultation bilaterally Abdomen: abdomen soft, non-tender, non-distended, no organomegaly Musculoskeletal: Pulses present and equal in all extremities, 1+ pitting edema to the lower extremities Motor: no focal deficits noted Neurological: CN II-XII grossly intact, no focal motor or sensory deficits noted Skin: Intact with no visualized rashes Psych: Normal affect and mood Limitations: no limitations Course Vital Signs 12/13/23 12/13/23 12/13/23 10:34 10:48 11:34 Temperature 97.5 F L Pulse Rate 139 H 91 Respiratory 24 24 18 Rate Blood Pressure 100/67 110/48 O2 Sat by Pulse 95 95 Oximetry 12/13/23 13:16 Temperature Pulse Rate 77 Respiratory 16 Rate Blood Pressure 134/78 O2 Sat by Pulse 95 Oximetry - Reevaluation(s) Reevaluation #1: 12/13/23 14:[address] Joseph of ICU states that we should talk to vascular nolan donovan if there is any immediate plans for surgical intervention to treat these blood clots. Case discussed with Dr. Bay at 2:03 PM states that we should admit patient to 3 S before they decide to commit to EKOS therapy.@2:05 PM patient reevaluated found to be stable medical addition. He is not hypotensive not dyspneic and is not in any acute distress. EKG Findings - EKG Comments: EKG Findings:: My EKG interpretation: Ventricular rate 102, irregular rhythm. There does appear to be discernible P waves after QRS.. Will not reported. QRS 97, QTc 4 1. No QTC prolongation, no ST or T-wave changes noted. Overall this EKG is nonspecific Medical Decision Making - Medical Decision Making Was pt. sent in by a medical professional or institution (, PA, FLAKING ROLL OPERATOR, urgent care, hospital, or intermediate...) When possible be specific @ -No Did you speak to anyone other than the patient for history (EMS, parent, family, police, friend...)? What history was obtained from this source @ -No Did you review nursing and triage notes (agree or disagree)? Why? @ -I reviewed and agree with nursing and triage notes Were old charts reviewed (outside hosp., previous admission, EMS record, old EKG, old radiological studies, urgent care reports/EKG's, intermediate records)? Report findings @ -No old charts were reviewed Differential Diagnosis (chest pain, altered mental status, abdominal pain women, abdominal pain men, vaginal bleeding, musculoskeletal, weakness, fever, dyspnea, syncope, headache, dizziness, GI bleed, back pain, seizure, CVA, palpatations, mental health)? @ -Differential Dyspnea: Coronary syndrome, arrhythmia, tamponade, asthma, COPD, pulmonary embolism, pneumonia, pneumothorax, pulmonary effusion, anaphylaxis, diabetic ketoacidosis, flailed chest, pulmonary contusion, diaphragmatic rupture, anemia, neuromuscular, this is not meant to be an all-inclusive list. EKG interpreted by me (3pts min.). @ -EKG as described above X-rays interpreted by me (1pt min.). @ -Chest x-ray shows no acute processes CT interpreted by me (1pt min.). @ -CT angiography of the chest shows moderate to large pulmonary emboli burden with right heart strain. There is a left lower lobe consolidation from pulmonary infarct U/S interpreted by me (1pt. min.). @ -Pending lower extremity duplex ultrasound What testing was considered but not performed or refused? (CT, X-rays, U/S, labs)? Why? @ -None What meds were considered but not given or refused? Why? @ -None Was smoking cessation discussed for >3mins.? @ -No Were there social determinants of health that impacted care today? How? (Homelessness, low income, unemployed, alcoholism, drug addiction, transportation, low edu. Level, literacy, decrease access to med. care, intermediate, rehab)? @ -No Was there de-escalation of care discussed even if they declined (Discuss DNR or withdrawal of care, Hospice)? DNR status @ -No What co-morbidities impacted this encounter? (DM, HTN, Smoking, COPD, CAD, C ancer, CVA, ARF, Chemo, Hep., AIDS, mental health diagnosis, sleep apnea, morbid obesity)? @ -History of PE Was patient admitted / discharged? Hospital course, mention meds given and route, prescriptions, significant lab abnormalities, going to OR and other pertinent info. @ -83-year-old male with history of PE presents to the emergency department exertional dyspnea. Vital signs upon arrival shows tachycardia 139. Patient dyspneic however not tachypneic. At rest he is well-appearing in no acute distress. Laboratory evaluation obtained. D-dimer of 12.39. Troponin 0.013 with BNP of 675. Chest x-ray negative. CT angiography shows moderate to large pulmonary emboli. No immediate plans for EKOS according to vascular surgery. Patient be admitted to 3 S. Case was also discussed with pulmonary. Discussed with hospitalist for admission Did you discuss the management of the patient with other professionals (professionals i.e. , PA, FLAKING ROLL OPERATOR, lab, RT, psych nurse, social services, executive steward, teacher, medical laboratory technical officer, director of casework)? Give summary @ -See above Was critical care preformed (if so, how long)? @ -Yes, 77 minutes Undiagnosed new problem with uncertain prognosis? @ -No Drug Therapy requiring intensive monitoring for toxicity (Heparin, Nitro, Insulin, Cardizem)? @ -No Were any procedures done? @ -No Diagnosis/symptom? Acute, or Chronic, or Acute on Chronic? Uncomplicated (without systemic symptoms) or Complicated (systemic symptoms)? @ -PE with right heart strain Side effects of treatment? @ -No Exacerbation, Progression, or Severe Exacerbation? @ -No Poses a threat to life or bodily function? How? (Chest pain, [place], [place], pneumonia, PE, COPD, DKA, ARF, appy, cholecystitis, CVA, Diverticulitis, Homicidal, Suicidal, threat to staff... and all critical care pts) @ -yes - Lab Data Result diagrams: 12/13/23 11:12/13/23 11: Lab Results 12/13/23 12/13/23 12/13/23 Range/Units 11: 11: 11: WBC 9.6 (3.8-10.6) k/uL RBC 4.87 (4.30-5.90) m/uL Hgb 15.6 (13.0-17.5) gm/dL Hct 47.1 (39.0-53.0) % MCV 96.7 (80.0-100.0) fL MCH 32.0 (25.0-35.0) pg MCHC 33.1 (31.0-37.0) g/dL RDW 13.2 (11.5-15.5) % Plt Count 220 (150-450) k/uL MPV 7.8 Neutrophils % 71 % Lymphocytes % 19 % Monocytes % 6 % Eosinophils % 2 % Basophils % 0 % Neutrophils # 6.8 (1.3-7.7) k/uL Lymphocytes # 1.8 (1.0-4.8) k/uL Monocytes # 0.6 (0-1.0) k/uL Eosinophils # 0.2 (0-0.7) k/uL Basophils # 0.0 (0-0.2) k/uL PT 10.8 (10.0-12.5) sec INR 1.0 (<1.2) APTT 26.9 (22.0-30.0) sec D-Dimer 12.39 H (<0.60) mg/L FEU Sodium 138 (137-145) mmol/L Potassium 4.2 (3.5-5.1) mmol/L Chloride 101 (98-107) mmol/L Carbon Dioxide 25 (22-30) mmol/L Anion Gap 12 mmol/L BUN 9 (9-20) mg/dL Creatinine 0.98 (0.66-1.25) mg/dL Est GFR (CKD-EPI)AfAm 82 (>60 ml/min/1.73 sqM) Est GFR (CKD-EPI)NonAf 71 (>60 ml/min/1.73 sqM) Glucose 121 H (74-99) mg/dL Lactic Ac Sepsis Rflx Plasma Lactic Acid Gary (0.7-2.0) mmol/L Calcium 9.5 (8.4-10.2) mg/dL Total Bilirubin 0.8 (0.2-1.3) mg/dL AST 53 (17-59) U/L ALT 30 (4-49) U/L Alkaline Phosphatase 122 (38-126) U/L Troponin I (0.000-0.034) ng/mL NT-Pro-B Natriuret Pep 675 pg/mL Total Protein 7.8 (6.3-8.2) g/dL Albumin 4.2 (3.5-5.0) g/dL TSH 0.547 (0.465-4.680) mIU/L 12/13/23 12/13/23 12/13/23 Range/Units 11:02 11:02 11:48 WBC (3.8-10.6) k/uL RBC (4.30-5.90) m/uL Hgb (13.0-17.5) gm/dL Hct (39.0-53.0) % MCV (80.0-100.0) fL MCH (25.0-35.0) pg MCHC (31.0-37.0) g/dL RDW (11.5-15.5) % Plt Count (150-450) k/uL MPV Neutrophils % % Lymphocytes % % Monocytes % % Eosinophils % % Basophils % % Neutrophils # (1.3-7.7) k/uL Lymphocytes # (1.0-4.8) k/uL Monocytes # (0-1.0) k/uL Eosinophils # (0-0.7) k/uL Basophils # (0-0.2) k/uL PT (10.0-12.5) sec INR (<1.2) APTT (22.0-30.0) sec D-Dimer (<0.60) mg/L FEU Sodium (137-145) mmol/L Potassium (3.5-5.1) mmol/L Chloride (98-107) mmol/L Carbon Dioxide (22-30) mmol/L Anion Gap mmol/L BUN (9-20) mg/dL Creatinine (0.66-1.25) mg/dL Est GFR (CKD-EPI)AfAm (>60 ml/min/1.73 sqM) Est GFR (CKD-EPI)NonAf (>60 ml/min/1.73 sqM) Glucose (74-99) mg/dL Lactic Ac Sepsis Rflx Y Plasma Lactic Acid Gary 2.3 H* (0.7-2.0) mmol/L Calcium (8.4-10.2) mg/dL Total Bilirubin (0.2-1.3) mg/dL AST (17-59) U/L ALT (4-49) U/L Alkaline Phosphatase (38-126) U/L Troponin I 0.013 (0.000-0.034) ng/mL NT-Pro-B Natriuret Pep pg/mL Total Protein (6.3-8.2) g/dL Albumin (3.5-5.0) g/dL TSH (0.465-4.680) mIU/L Disposition Clinical Impression: Pulmonary embolism Disposition: ADMITTED IP TO THIS HOSP Condition: Critical Referrals: Jos Garcia MD [Primary Care Provider] - 1-2 days Decision Time: 14:08
--- NOTE | 2023-12-13 11:24 | XR ---
EXAMINATION TYPE: XR chest 2V DATE OF EXAM: 12/13/2023 11:07 AM COMPARISON: Chest radiographs from 07/24/2009 CLINICAL INDICATION: Male, 83 years old with history of dyspnea; [facility] TECHNIQUE: XR chest 2V Frontal and lateral views of the chest. FINDINGS: Lungs/Pleura: There is no evidence of pleural effusion, focal consolidation, or pneumothorax. Pulmonary vascularity: Unremarkable. Heart/mediastinum: Cardiomediastinal silhouette is unremarkable. Musculoskeletal: No acute osseous pathology. IMPRESSION: No acute cardiopulmonary disease/process. [facility], , 12/13/2023 11:22 AM
[2023-12-13 11:27] LABS: ALT 30 U/L (4-49); African American GFR (CKD) 82 (>60 ml/min/1.73 sqM); Albumin 4.2 g/dL (3.5-5.0); Anion Gap 12 mmol/L; Blood Urea Nitrogen 9 mg/dL (9-20); Calcium 9.5 mg/dL (8.4-10.2); Carbon Dioxide 25 mmol/L (22-30); Chloride 101 mmol/L (98-107); Glucose 121 mg/dL (74-99); Non-African American GFR(CKD) 71 (>60 ml/min/1.73 sqM); Sodium 138 mmol/L (137-145); Total Bilirubin 0.8 mg/dL (0.2-1.3); Total Protein 7.8 g/dL (6.3-8.2)
[2023-12-13 11:36] LABS: NT-Pro-B-Type Natriuretic Pept 675 pg/mL
[2023-12-13 11:43] LABS: AST 53 U/L (17-59); Alkaline Phosphatase 122 U/L (38-126); Basophils % (A) 0 %; Eosinophils # (A) 0.2 k/uL (0-0.7); Eosinophils % (A) 2 %; HCT 47.1 % (39.0-53.0); HGB 15.6 gm/dL (13.0-17.5); Lymphocytes # (A) 1.8 k/uL (1.0-4.8); Lymphocytes % (A) 19 %; MCHC 33.1 g/dL (31.0-37.0); MCV 96.7 fL (80.0-100.0); Mean Platelet Volume 7.8; Monocytes # (A) 0.6 k/uL (0-1.0); Monocytes % (A) 6 %; Neutrophils # (A) 6.8 k/uL (1.3-7.7); Neutrophils % (A) 71 %; Platelet Count 220 k/uL (150-450); Potassium 4.2 mmol/L (3.5-5.1); RBC 4.87 m/uL (4.30-5.90); RDW 13.2 % (11.5-15.5); WBC 9.6 k/uL (3.8-10.6)
[2023-12-13 11:47] LABS: Partial Thromboplastin Time 26.9 sec (22.0-30.0); Prothrombin Time 10.8 sec (10.0-12.5)
[2023-12-13] MEDS ORDERED: HEPARIN SODIUM 1,000 UN/ML (10ML VL) IV PRN (13:51)
--- NOTE | 2023-12-13 13:52 | CT ---
EXAMINATION TYPE: CT angio chest DATE OF EXAM: 12/13/2023 1:42 PM COMPARISON: CLINICAL INDICATION: Male, 83 years old with history of positive D-dimer; chest pain and sob TECHNIQUE/CONTRAST: CTA scan of the thorax is performed with IV Contrast, patient injected with 100 mL of Isovue 370, MIP images are created and reviewed these are created on a separate workstation.. CT DLP: 433.8 mGycm, Automated exposure control for dose reduction was used. FINDINGS: Pulmonary Artery: Bilateral filling defects are seen within the bilateral lower lobes and upper lobes pulmonary arterial vasculature. The pulmonary trunk is dilated up to 36 mm. Mild reflux of contrast present. RV/LV ratio 1.2 Lungs/Pleura: Left lower lobe wedge-shaped area along the periphery. No evidence of airspace focal co nsolidation, pleural effusion or pneumothorax. Airway: Large airways are patent. Heart: Heart is within normal limits for size. Vasculature: No evidence of aortic aneurysm. Mediastinum: No gross evidence of adenopathy. Musculoskeletal: Moderate degenerative disc disease changes are present throughout the thoracolumbar spine. Soft Tissues/lymph nodes: Unremarkable. Lower neck: No significant findings. Upper Abdomen: Aortic stent graft partially visualized. Large stool burden in the colon. IMPRESSION: 1. Moderate to large pulmonary emboli burden with evidence of right heart strain. RV/LV ratio 1.2 2. Left lower lobe consolidation likely representing pulmonary infarct. Findings communicated to Dr. Felice Yarbrough DO on 12/13/2023 1:[address] Ovidio Lcuas. [facility], , 12/13/2023 1:50 PM
[2023-12-13] MEDS ORDERED: NALOXONE 0.4 MG/ML 1 ML VIAL IV PRN (14:05)
[2023-12-13] MEDS ORDERED: MORPHINE SULFATE 4 MG/ML SYRINGE IV PRN (14:05)
[2023-12-13] MEDS: HEPARIN SODIUM 1,000 UN/ML (10ML VL) IV ONE (14:07)
[2023-12-13] MEDS: HEPARIN SOD,PORK IN 0.45% NACL 25,000 UNIT in 0.45% NACL 1 250ML.BAG IV SCH (14:08)
[2023-12-13] MEDS: SODIUM CHLORIDE 0.9% 1,000 ML IV SCH (14:13)
--- NOTE | 2023-12-13 16:48 | US ---
EXAMINATION TYPE: US venous doppler duplex LE DATE OF EXAM: 12/13/2023 4:10 PM COMPARISON: US 2009 CLINICAL INDICATION: Male, 83 years old with history of PE; , Pain, Swelling TECHNIQUE: The lower extremity deep venous system is examined utilizing real time linear array sonog lilli with graded compression, color doppler sonography, and spectral doppler. SIDE PERFORMED: Bilateral FINDINGS: VESSELS IMAGED: Common Femoral Vein Deep Femoral Vein Greater Saphenous Vein * Femoral Vein Popliteal Vein Small Saphenous Vein * Proximal Calf Veins (* superficial vessels) Right Leg: Appears negative for DVT Left Leg: Positive for DVT distal popliteal vein through proximal calf veins IMPRESSION: 1. Deep vein thrombosis within the left popliteal vein. 2. No evidence for right colectomy deep vein thrombosis. [facility], [id number], 12/13/2023 4:45 PM
[2023-12-13] MEDS: IPRATROPIUM 0.5 MG/2.5 ML NEBU INHALATION SCH (18:39)
[2023-12-13] MEDS: SYMBICORT 160-4.5 MCG INHALER INHALATION SCH (18:39)
[2023-12-13] MEDS: FINASTERIDE 5 MG TAB PO SCH (20:45)
--- NOTE | 2023-12-13 23:26 | HP ---
HISTORY AND PHYSICAL CHIEF COMPLAINT: Shortness of breath. HISTORY OF PRESENT ILLNESS: This is another admission for this 83-year-old white male, who has had a history of hypertension, but has otherwise been fairly healthy. He did have pulmonary emboli in the past many years ago. The night before coming in, he started to notice shortness of breath, which grew quickly worse and was greatly aggravated by moving around. He came to the emergency room where he was found to have several large pulmonary emboli. He has not had any chest pain or hemoptysis. He has had no problems with the extremities. He does have a history of hypertension, but he has been well controlled. REVIEW OF SYSTEMS: Otherwise unremarkable and noncontributory. Past medical history, family history, and personal and social histories are unremarkable. PHYSICAL EXAMINATION: VITAL SIGNS: Normal except for a pulse of 139. HEAD, EARS, EYES, NOSE, MOUTH, AND THROAT: Normal. CHEST: Clear. There are no rales or rhonchi. CARDIAC: Exam demonstrates sinus rhythm. ABDOMEN: Soft, nontender. EXTREMITIES: Normal. NEUROLOGIC: Intact. He is admitted to the hospital. DIAGNOSES: 1. Pulmonary emboli. 2. History of hypertension. 3. History of previous pulmonary emboli. PLAN: 1. Bed rest. 2. IV fluids. 3. Pulmonology consult. 4. IV heparin. 5. Monitor cardiac function with a BNP of 675. MMODL / IJN: [id number] /
[2023-12-14] MEDS: PANTOPRAZOLE 40 MG TABLET PO SCH (05:20)
[2023-12-14] MEDS: ATORVASTATIN 20 MG TAB PO SCH (08:49)
--- NOTE | 2023-12-14 11:44 | P.CNPUL ---
History of Present Illness Consult date: 12/14/23 Requesting physician: Jos Garcia Reason for consult: dyspnea, chest pain, hypoxemia, pulmonary embolism, abnormal CXR/CT Chief complaint: Shortness of breath. History of present illness: Pulmonary consult dated December 14, 2023. 83-year-old male seen in the emergency department, December 12. He came in complaining of shortness of breath. The shortness of breath was occurring primarily with exertion. The patient was evaluated, in the emergency department, and was found to have a pulmonary embolism. I was called by the ER physician. The patient did not need an intensive care unit bed, as he was not going to have an intervention, at least not yesterday. The patient is currently on 2 L of oxygen. He is receiving IV heparin. Doppler of the left leg, was positive for DVT. His CTA did show evidence of right heart strain. An echocardiogram was ordered. This appears to be an unprovoked pulmonary embolism. The patient has a history of COPD, GERD, hyperlipidemia, prostate disease, and a abdominal aortic aneurysm, being followed by one of the vascular surgeons. He apparently had a pulmonary embolism 5 to 6 years ago. He does have a history of intermittent vertigo, as well as chronic motion sickness. White count 9.6, human 15.6, hematocrit 47.1, and platelet count is normal. D- dimer was 12.39. PTT is 92. Sodium potassium chloride CO2 anion gap BUN and creatinine all normal. Glucose 121. Lactic acid initially was 2.3. Troponin was 0.013. N-terminal proBNP was 675. Chest x-ray was normal. CTA showed moderate to large pulmonary emboli, in both lungs, RV/LV ratio is 1.2 to 1. Review of Systems REVIEW OF SYSTEMS: CONSTITUTIONAL: [Negative.] NEUROLOGIC: [ Negative.] HEENT: [ Negative.] CARDIAC: Central chest pain. PULMONARY: Shortness of breath. GI: [Negative.] : [Negative.] RHEUMATOLOGIC: [ Negative.] IMMUNOLOGIC: [ Negative.] ENDOCRINE: [Negative. ] DERMATOLOGIC: [Negative.] Past Medical History Past Medical History: COPD, GERD/Reflux, Hyperlipidemia, Prostate Disorder, Pulmonary Embolus (PE), Skin Disorder Additional Past Medical History / Comment(s): AAA-dr. Noel monitoring, PE 5- 6 yrs. ago, intermittent vertigo, epigastric pain History of Any Multi-Drug Resistant Organisms: None Reported Additional Past Surgical History / Comment(s): cyst removed from spine, circumcision as an adult, cataracts removed Past Anesthesia/Blood Transfusion Reactions: Motion Sickness Past Psychological History: Anxiety Smoking Status: Former smoker Past Alcohol Use History: Occasional Additional Past Alcohol Use History / Comment(s): stopped smoking in early s, doesn't drink anymore Past Drug Use History: None Reported - Past Family History Sister(s) Family Medical History: Cancer Medications and Allergies Home Medications Medication Instructions Recorded Confirmed Type Finasteride [Proscar] 5 mg PO HS 10/20/17 12/13/23 History Omeprazole [PriLOSEC] 40 mg PO AC-BRKFST 10/20/17 12/13/23 History Fluticasone/Umeclidin/Vilanter 1 puff INHALATION RT-DAILY@1200 12/13/23 12/13/23 History [Trelegy Ellipta 200-62.5-25] Rosuvastatin [Crestor] 10 mg PO DAILY 12/13/23 12/13/23 History Allergies Allergy/AdvReac Type Severity Reaction Status Date / Time doxazosin Allergy Unknown Verified 12/13/23 14:39 tamsulosin [From Flomax] Allergy Rash/Hives Verified 12/13/23 14:39 Physical Exam Osteopathic Statement: *. No significant issues noted on an osteopathic structural exam other than those noted in the History and Physical/Consult. Vitals: Vital Signs Temp Pulse Pulse Resp BP BP Pulse Ox 12/14/23 08:00 97.4 F L 78 16 122/77 99 12/14/23 07:59 80 12/14/23 07:52 96 12/14/23 07:51 78 12/14/23 03:28 97.6 F 91 22 158/82 95 12/14/23 02:10 97.6 F 80 14 167/71 93 L 12/14/23 01:34 EDT 75 16 148/90 94 L 12/14/23 00:00 70 16 152/90 95 12/13/23 18:47 80 12/13/23 18:39 76 12/13/23 18:03 77 18 139/80 96 12/13/23 14:14 75 18 145/89 96 12/13/23 13:16 77 16 134/78 95 Intake and Output 12/13/23 12/14/23 12/14/23 23:59 06:59 14:59 Intake Total 180 Output Total Balance 180 Intake: Intake, IV Titration Amount Heparin Sod,Pork in 0.45% NaCl 25,000 unit In 0.45 % NaCl 1 250ml.bag @ 18 UNITS/KG/HR 17.962 mls/hr IV .[id number] [facility] Rx#: [id number] Oral 180 Output: Urine Uretheral ([place]) Other: Voiding Method Toilet Urinal Weight No acute distress, oriented 3. Currently on 2 L of oxygen. No respiratory distress. HEENT examination is grossly unremarkable. Mucous membranes are moist. No oral lesions. Neck supple. Full range of motion. No adenopathy thyromegaly or neck vein distention. Cardiovascular examination reveals regular rhythm rate. S1-S2 normal. No S3 or S4. No discernible murmur noted. Lungs reveal clear breath sounds. Breath sounds are equal bilaterally. No adventitious lung sounds including wheezes rhonchi or crackles. Abdomen soft bowel sounds are heard. No masses or tenderness. Extremities are intact. No cyanosis clubbing or edema. Skin is without rash or lesion. Neurologic examination is brief but nonfocal. Results - Laboratory Findings CBC and BMP: 12/13/23 11:12/13/23 11:02 PT/INR, D-dimer PT 10.8 sec (10.0-12.5) 12/13/23 11: INR 1.0 (<1.2) 12/13/23 11: D-Dimer 12.39 mg/L FEU (<0.60) H 12/13/23 11:02 Abnormal lab findings: Abnormal Labs 12/13/23 12/13/23 12/13/23 11:02 11: 11:02 APTT D-Dimer 12.39 H Glucose 121 H Plasma Lactic Acid Gary 2.3 H* 12/13/23 12/14/23 20:13 04:30 APTT 183.4 H* 92.0 H D-Dimer Glucose Plasma Lactic Acid Gary - Diagnostic Findings Chest x-ray: image reviewed CT scan - chest: image reviewed U/S of Legs: image reviewed Assessment and Plan Assessment: Bilateral pulmonary emboli, acute, with right heart strain. Left lower extremity DVT. Prior history of pulmonary embolism, 5 to 6 years ago. History of COPD. History of GERD. History of hyperlipidemia. History of vertigo. Plan: Plan dated December 14, 2023. The patient is resting comfortably, in room 351. He is not short of breath, or having any chest discomfort. He continues on O2 at 2 L. He also continues on IV heparin. The patient came in complaining of shortness of breath on exertion, and some mild central chest pain. He was discovered to have a left lower extremity DVT, and bilateral pulmonary embolism, with right heart strain. Vascular surgery was called, but apparently, not planning to do a procedure on this patient. The patient apparently had a previous pulmonary embolism a number of years back. This pulmonary embolism appears to be unprovoked. The patient s hould be seen by hematology, for a hypercoagulable workup. Additional recommendations and suggestions are forthcoming. The patient can be transitioned to a factor Xa inhibitor. This is of course, if the patient is not going to have either suction thrombectomy, or EKOS. Time with Patient: Greater than 30
[2023-12-14] MEDS ORDERED: NON FORMULARY DRUG (Fluticasone/Umeclidin/Vilanter [Trelegy Ellipta 200-62.5-25] 1 EACH Bl INHALATION SCH (12:00)
--- NOTE | 2023-12-14 12:08 | P.GSCN ---
History of Present Illness Consult date: 12/14/23 History of present illness: Patient is an 83-year-old male who presented to the ER with complaints of shortness of breath worsened with exertion. He has history of COPD, GERD, hyperlipidemia, prostate disease and reported abdominal aortic aneurysm treated with endovascular aortic repair by Dr. Sebastian in July 2019. He has been at home and without any significant travel or recent surgical interventions. He does have a history supposedly of a PE many years ago but is not on routine anticoagulation at this time. On evaluation workup in the ER he was found to have bilateral pulmonary emboli. He was heparinized and admitted for this. He is doing okay at this point with mild continued shortness of breath worse with exertion. He denies any significant shortness of breath at rest. He is on 2 L of O2 at this time. Past Medical History Past Medical History: COPD, GERD/Reflux, Hyperlipidemia, Prostate Disorder, Pulmonary Embolus (PE), Skin Disorder Additional Past Medical History / Comment(s): [facility]-dr. Noel monitoring, PE 5- 6 yrs. ago, intermittent vertigo, epigastric pain History of Any Multi-Drug Resistant Organisms: None Reported Additional Past Surgical History / Comment(s): cyst removed from spine, circumcision as an adult, cataracts removed Past Anesthesia/Blood Transfusion Reactions: Motion Sickness Past Psychological History: Anxiety Smoking Status: Former smoker Past Alcohol Use History: Occasional Additional Past Alcohol Use History / Comment(s): stopped smoking in early , doesn't drink anymore Past Drug Use History: None Reported - Past Family History Sister(s) Family Medical History: Cancer Medications and Allergies Home Medications Medication Instructions Recorded Confirmed Type Finasteride [Proscar] 5 mg PO HS 10/20/17 12/13/23 History Omeprazole [PriLOSEC] 40 mg PO AC-BRKFST 10/20/17 12/13/23 History Fluticasone/Umeclidin/Vilanter 1 puff INHALATION RT-DAILY@1200 12/13/23 12/13/23 History [Trelegy Ellipta 200-62.5-25] Rosuvastatin [Crestor] 10 mg PO DAILY 12/13/23 12/13/23 History Allergies Allergy/AdvReac Type Severity Reaction Status Date / Time doxazosin Allergy Unknown Verified 12/13/23 14:39 tamsulosin [From Flomax] Allergy Rash/Hives Verified 12/13/23 14:39 Surgical - Exam Vital Signs Temp Pulse Resp BP Pulse Ox 97.5 F L 139 H 24 100/67 95 12/13/23 10:34 12/13/23 10:34 12/13/23 10:34 12/13/23 10:34 12/13/23 10:34 General Is a pleasant cooperative male in no significant distress on O2 per nasal cannula. HEENT is normocephalic, atraumatic, extraocular motion intact. Heart appears regular at this time. Abdomen is soft, nontender, nondistended. Extremities with no clubbing, cyanosis. There is mild left lower extremity edema nonpitting. He has palpable radial, femoral, dorsalis pedis pulses bilaterally. Motor sensor intact. Cranial nerves II through XII grossly intact Results CT reviewed. Moderate amount of thrombus in the bilateral pulmonary arteries. Borderline right heart strain on imaging - Labs 12/13/23 11:02 12/13/23 11:02 Abnormal Lab Results - Last 24 Hours (Table) 12/13/23 12/14/23 Range/Units 20:13 04:30 APTT 183.4 H* 92.0 H (22.0-30.0) sec Assessment and Plan Assessment: Bilateral pulmonary emboli Left lower extremity DVT History of abdominal aortic aneurysm status post endovascular repair in 2019 Plan: Long discussion had with the patient in regards to findings on his imaging. Awaiting final echocardiogram. Did discuss potential for thrombolysis/thrombectomy versus continued management with IV anticoagulation and transition to oral anticoagulation only. Discussed risks of bleeding, brain bleed, infection. Will await further findings on imaging to make further recommendations and discussions. Given his advanced age would potentially be less aggressive in surgical interventions however if it becomes necessary would advise likely thrombectomy if possible. Will continue to discuss all options as the indications arise. He seemingly understands this and is willing to proceed.
[2023-12-14] MEDS: LOSARTAN 50 MG TAB PO SCH (23:12)
--- NOTE | 2023-12-15 03:30 | PN ---
PROGRESS NOTE DATE OF SERVICE: 12/14/2023 CHIEF COMPLAINT: Pulmonary emboli. HISTORY OF PRESENT ILLNESS: This gentleman is doing fairly well, but he is quite short of breath with the least amount of activity. He denies any pain, fever, or chills. PHYSICAL EXAMINATION: CHEST: Clear. CARDIAC: Normal. VITAL SIGNS: Normal. IMPRESSION: 1. Pulmonary emboli with respiratory deficiency. 2. Hypertension. PLAN: Continue with anticoagulants, bedrest, and nasal O2. MMODL / IJN: [id number] /
[2023-12-15] MEDS: polyethylene glycoL 3350 17 GM POWD.PACK PO SCH (08:31)
--- NOTE | 2023-12-15 10:08 | CA ---
Transthoracic Echo Report Name: Dayo Rojas Age: 83 Gender: M : 1940 Exam Date: 12/15/2023 09:27 Exam Location: [facility] Ht (in): 72 Wt (lb): 210 Ordering Physician: Ebony Benavidez Attending/Referring Phys: Leak Detection Engineer Anastasia Maddox RDCS Procedure CPT: Indications: PE Cardiac Hx: Technical Quality: Fair Contrast 1: Total Dose (mL): Contrast 2: Total Dose (mL): MEASUREMENTS (Male / Female) Normal Values 2D ECHO LV Diastolic Diameter PLAX 5.0 cm 4.2 - 5.9 / 3.9 - 5.3 cm LV Systolic Diameter PLAX 4.0 cm IVS Diastolic Thickness 1.2 cm 0.6 - 1.0 / 0.6 - 0.9 cm LVPW Diastolic Thickness 1.2 cm 0.6 - 1.0 / 0.6 - 0.9 cm LV Relative Wall Thickness 0.5 RV Internal Dim ED PLAX 1.7 cm LA Systolic Diameter LX 4.1 cm 3.0 - 4.0 / 2.7 - 3.8 cm LV Diastolic Volume MOD BP 61.7 cm??? 67 - 155 / 56 - 104 cm??? LV Systolic Volume MOD BP 31.7 cm??? 22 - 58 / 19 - 49 cm??? LV Ejection Fraction MOD BP 48.7 % >= 55 % LV Cardiac Index MOD BP 1150.3 cm???/min???m??? LV Diastolic Volume MOD 4C 85.2 cm??? LV Systolic Volume MOD 4C 46.9 cm??? LV Ejection Fraction MOD 4C 44.9 % LV Cardiac Index MOD 4C 1467.7 cm???/min???m??? LV Diastolic Length 4C 6.9 cm LV Systolic Length 4C 6.3 cm LV Diastolic Volume MOD 2C 41.7 cm??? LV Systolic Volume MOD 2C 21.5 cm??? LV Ejection Fraction MOD 2C 48.5 % LV Cardiac Index MOD 2C 774.0 cm???/min???m??? LV Diastolic Length 2C 6.4 cm LV Systolic Length 2C 6.4 cm LA Volume 41.1 cm??? 18 - 58 / 22 - 52 cm??? LA Volume Index 18.5 cm???/m??? 16 - 28 cm???/m??? M-MODE Aortic Root Diameter MM 3.2 cm LA Systolic Diameter MM 4.0 cm LA Ao Ratio MM 1.2 AV Cusp Separation MM 2.2 cm DOPPLER AI Peak Velocity 201.9 cm/s AI Peak Gradient 16.3 mmHg AI Pressure Half Time 1152.1 ms MV Area PHT 2.5 cm??? Mitral E Point Velocity 57.3 cm/s Mitral A Point Velocity 78.0 cm/s Mitral E to A Ratio 0.7 MV Deceleration Time 308.1 ms TR Peak Velocity 282.2 cm/s TR Peak Gradient 31.8 mmHg Right Ventricular Systolic Press 34.7 mmHg FINDINGS Left Ventricle Left ventricular ejection fraction is estimated at 50-55%. Mildly increased septal wall thickness. Mildly decreased left ventricular ejection fraction. Left ventricular cavity size normal. No obvious regional wall motion abnormalities. Right Ventricle Mild right ventricular dilatation. Normal right ventricular global systolic function. Mild pulmonary hypertension. Right Atrium Normal right atrial size. Left Atrium Mildly increased left atrial diameter. Mitral Valve Structurally normal mitral valve. Mild mitral regurgitation. No mitral stenosis. Aortic Valve Trileaflet aortic valve. Mild aortic regurgitation. No aortic stenosis. Tricuspid Valve Structurally normal tricuspid valve. Mild tricuspid regurgitation. No tricuspid prolapse. Pulmonic Valve Structurally normal pulmonic valve. Trace pulmonic regurgitation. No pulmonic stenosis. Pericardium No pericardial or pleural effusion. Aorta Normal size aortic root and proximal ascending aorta. CONCLUSIONS Normal LV function Previewed by: Dr. Ish Aragon MD (Electronically Signed) Final Date: 15 December 2023 10:07
--- NOTE | 2023-12-15 13:18 | P.PN ---
Subjective Progress Note Date: 12/15/23 Principal diagnosis: Bilateral PE Patient is seen and examined today as a follow-up. He is sitting up in bed and appears in no distress. He appears to be breathing comfortably. States he is not having any shortness of breath at this time. States he has not been getting up anymore to the bathroom because they put a Bay catheter in. Oxygen saturation 98% on 2 L nasal cannula. Echocardiogram reveals mild right ventricular dilation, normal right ventricular global systolic function. Mild pulmonary hypertension. Objective - Vital Signs Vital signs: Vital Signs Temp 97.6 F 12/15/23 03:01 Pulse 80 12/15/23 08:20 Resp 20 12/15/23 08:20 BP 116/69 12/15/23 08:20 Pulse Ox 98 12/15/23 08:20 FiO2 Intake & Output 12/14/23 12/15/23 12/15/23 18:59 06:59 18:59 Intake Total 540 270 120 Output Total 600 1950 Balance -60 -1680 120 Weight 93.2 kg Intake: IV 20 Invasive Line 1 20 Intake, IV Titration 250 Amount Heparin Sod,Pork in 0.45% 250 NaCl 25,000 unit In 0.45 % NaCl 1 250ml.bag @ 18 UNITS/KG/HR 17.962 mls/hr IV .[id number] COUNT INCLUDES [facility] Rx#: [id number] Oral 540 120 Output: Urine 600 1950 Uretheral (Bay) 400 Other: Voiding Method Toilet Indwelling Catheter Urinal - Exam General appearance: The patient is alert, oriented, appears in no acute distress. HET: Head is normocephalic and atraumatic. Neck: Supple. Heart: Regular. Lungs: Equal expansion, normal respiratory effort. Abdomen: Soft, nontender, nondistended. Extremities: Normal skin color and turgor. Neurological: No focal deficits. - Labs CBC & Chem 7: 12/13/23 11:02 12/13/23 11:02 Labs: Abnormal Lab Results - Last 24 Hours (Table) 12/14/23 12/15/23 Range/Units 11:20 07:30 APTT 67.9 H 55.4 H (22.0-30.0) sec Assessment and Plan Assessment: 1. Bilateral pulmonary emboli 2. Left lower extremity DVT 3. History of abdominal aortic aneurysm status post endovascular repair in 2020 Plan: 1. Echocardiogram ordered and reviewed 2. No plans on any vascular surgical intervention 3. May transition to anticoagulation of your choice Thank you for this consultation, we will continue to follow. The impression and plan of care has been dictated as directed. Dr. Bay I performed a history and examination of this patient, discussed the same with the dictator. I agree with the dictator's note ,documented as a scribe. Any additional findings or plans will be noted.
--- NOTE | 2023-12-15 14:32 | P.PN ---
Subjective Progress Note Date: 12/15/23 83-year-old male seen in the emergency department, December 12. He came in complaining of shortness of breath. The shortness of breath was occurring primarily with exertion. The patient was evaluated, in the emergency department, and was found to have a pulmonary embolism. I was called by the ER physician. The patient did not need an intensive care unit bed, as he was not going to have an intervention, at least not yesterday. The patient is currently on 2 L of oxygen. He is receiving IV heparin. Doppler of the left leg, was positive for DVT. His CTA did show evidence of right heart strain. An echocardiogram was ordered. This appears to be an unprovoked pulmonary embolism. The patient has a history of COPD, GERD, hyperlipidemia, prostate disease, and a abdominal aortic aneurysm, being followed by one of the vascular surgeons. He apparently had a pulmonary embolism 5 to 6 years ago. He does have a history of intermittent vertigo, as well as chronic motion sickness. White count 9.6, human 15.6, hematocrit 47.1, and platelet count is normal. D- dimer was 12.39. PTT is 92. Sodium potassium chloride CO2 anion gap BUN and creatinine all normal. Glucose 121. Lactic acid initially was 2.3. Troponin was 0.013. N-terminal proBNP was 675. Chest x-ray was normal. CTA showed moderate to large pulmonary emboli, in both lungs, RV/LV ratio is 1.2 to 1. On 12/15/2023, the patient is being seen for a follow-up. The patient is currently being treated for a left lower extremity DVT, popliteal and No significant pulmonary hypertension. Echocardiogram was done and the patient has RV failure. There is mild RV dilatation. Normal RV global systolic function. Mild pulmonary pretension. The patient meanwhile remains on anticoagulation with IV heparin. The patient has had previous history of DVT and this is obviously a recurrent event. No labs are available from today. The patient remains on oxygen and is currently on 2 L with a pulse ox of 98%. No respite difficulties. No pleurisy. No hemoptysis. No chest pain. No other new complaints otherwise for now. He is known to have COPD, prostate cancer, endovascular stent grafting history of abdominal aortic aneurysm with previous endovascular stent grafting. The patient has also had history of prostate cancer. Objective - Vital Signs Vital signs: Vital Signs Temp 97.6 F 12/15/23 03:01 Pulse 80 12/15/23 08:20 Resp 20 12/15/23 08:20 BP 116/69 12/15/23 08:20 Pulse Ox 98 12/15/23 08:20 FiO2 Intake & Output 12/14/23 12/15/23 12/15/23 18:59 06:59 18:59 Intake Total 540 270 120 Output Total 600 1950 Balance -60 -1680 120 Weight 93.2 kg Intake: IV 20 Invasive Line 1 20 Intake, IV Titration 250 Amount Heparin Sod,Pork in 0.45% 250 NaCl 25,000 unit In 0.45 % NaCl 1 250ml.bag @ 18 UNITS/KG/HR 17.962 mls/hr IV .[id number] [facility] Rx#: [id number] Oral 540 120 Output: Urine 600 1950 Uretheral (Bay) 400 Other: Voiding Method Toilet Indwelling Catheter Urinal - Exam No acute distress, oriented 3. Currently on 2 L of oxygen. No respiratory distress. HEENT examination is grossly unremarkable. Mucous membranes are moist. No oral lesions. Neck supple. Full range of motion. No adenopathy thyromegaly or neck vein distention. Cardiovascular examination reveals regular rhythm rate. S1-S2 normal. No S3 or S4. No discernible murmur noted. Lungs reveal clear breath sounds. Breath sounds are equal bilaterally. No adventitious lung sounds including wheezes rhonchi or crackles. Abdomen soft bowel sounds are heard. No masses or tenderness. Extremities are intact. No cyanosis clubbing or edema. Skin is without rash or lesion. Neurologic examination is brief but nonfocal. - Labs CBC & Chem 7: 12/13/23 11:02 12/13/23 11:02 Labs: Abnormal Lab Results - Last 24 Hours (Table) 12/14/23 12/15/23 Range/Units 11:20 07:30 APTT 67.9 H 55.4 H (22.0-30.0) sec Assessment and Plan Plan: Bilateral pulmonary emboli, acute, without significant hemodynamic instability or pulmonary pretension. Please refer to the echocardiogram. This is a recurrent event and the patient will be subjected to lifelong anticoagulants and the patient has a left lower extremity popliteal DVT. Acute hypoxic respiratory failure currently on 2 L of oxygen by nasal cannula Shortness of breath secondary to above Left lower extremity DVT, popliteal Prior history of pulmonary embolism, 5 to 6 years ago. History of COPD. History of GERD. History of hyperlipidemia. History of vertigo. History of abdominal arctic aneurysm with a previous endovascular stent grafting History of prostate cancer Plan: Patient is currently on 2 L of O2 nasal cannula Continue IV heparin and the patient to Eliquis within the next 24 hours Will need lifelong anticoagulants Hemodynamically stable Obtain follow-up blood work including hemoglobin and platelet counts Bay catheter is in place Will continue to follow
[2023-12-15] MEDS: NA PHOS,M-B/NA PHOS,DI-BA 133 ML ENEMA RECTAL STA (14:35)
[2023-12-15 20:45] LABS: African American GFR (CKD) >90 (>60 ml/min/1.73 sqM); Anion Gap 4 mmol/L; Blood Urea Nitrogen 11 mg/dL (9-20); Calcium 8.7 mg/dL (8.4-10.2); Carbon Dioxide 25 mmol/L (22-30); Chloride 109 mmol/L (98-107); Glucose 112 mg/dL (74-99); Non-African American GFR(CKD) 84 (>60 ml/min/1.73 sqM); Potassium 3.9 mmol/L (3.5-5.1); Sodium 138 mmol/L (137-145)
[2023-12-15 20:50] LABS: Basophils % (A) 0 %; Eosinophils # (A) 0.4 k/uL (0-0.7); Eosinophils % (A) 4 %; HCT 39.9 % (39.0-53.0); HGB 12.9 gm/dL (13.0-17.5); Hypochromasia Slight; Lymphocytes # (A) 2.2 k/uL (1.0-4.8); Lymphocytes % (A) 24 %; MCH 31.9 pg (25.0-35.0); MCHC 32.2 g/dL (31.0-37.0); Mean Platelet Volume 7.1; Monocytes # (A) 0.5 k/uL (0-1.0); Monocytes % (A) 6 %; Neutrophils % (A) 66 %; Platelet Count 201 k/uL (150-450); RBC 4.03 m/uL (4.30-5.90); RDW 12.9 % (11.5-15.5); WBC 9.2 k/uL (3.8-10.6)
[2023-12-16 03:39] VITALS: TEMP 98
--- NOTE | 2023-12-16 07:30 | PN ---
PROGRESS NOTE DATE OF SERVICE: 12/15/2023 CHIEF COMPLAINT: Bilateral pulmonary emboli. HISTORY OF PRESENT ILLNESS: This gentleman is still quite short of breath. He is being followed by Vascular Surgery. He does not have any chest pain, fever, or chills. PHYSICAL EXAMINATION: CHEST: Clear. CARDIAC: Normal. ABDOMEN: Soft and nontender. IMPRESSION: Bilateral pulmonary emboli. PLAN: 1. Continue with anticoagulation. 2. Await any further recommendations from Vascular Surgery. MMODL / IJN: [id number] /
[2023-12-16 07:37] VITALS: RESP 16
--- NOTE | 2023-12-16 08:55 | P.PN ---
Subjective Progress Note Date: 12/16/23 Principal diagnosis: Bilateral PE Patient is seen and examined today as a follow-up. He is currently on room air, with oxygen saturation 97%. He states that he is feeling better. He has not been up much due to Bay catheter per patient. He denies any chest pain, shortness of breath improved. No abdominal pain, nausea or vomiting. He remains on IV heparin drip Objective - Vital Signs Vital signs: Vital Signs Temp 98 F 12/16/23 03:05 Pulse 77 12/16/23 08:17 Resp 16 12/16/23 07:36 BP 135/74 12/16/23 07:36 Pulse Ox 97 12/16/23 07:36 FiO2 Intake & Output 12/15/23 12/16/23 12/16/23 18:59 06:59 18:59 Intake Total 440 237.514 Output Total 1550 2024 700 Balance -1110 -3007.486 -700 Weight 93.2 kg Intake: IV 20 Invasive Line 1 20 Intake, IV Titration 217.514 Amount Heparin Sod,Pork in 0.45% 217.514 NaCl 25,000 unit In 0.45 % NaCl 1 250ml.bag @ 18 UNITS/KG/HR 17.962 mls/hr IV .[id number] [facility] Rx#: [id number] Oral 440 Output: Urine 1550 2024 700 Other: Voiding Method Indwelling Catheter Indwelling Catheter - Exam General appearance: The patient is alert, oriented, appears in no acute distress. HET: Head is normocephalic and atraumatic. Neck: Supple. Heart: Regular. Lungs: Equal expansion, normal respiratory effort. Abdomen: Soft, nontender, nondistended. Extremities: Normal skin color and turgor. Neurological: No focal deficits. - Labs CBC & Chem 7: 12/15/23 19:58 12/15/23 19:58 Labs: Abnormal Lab Results - Last 24 Hours (Table) 12/15/23 12/15/23 12/16/23 Range/Units 19:58 19:58 05:45 RBC 4.03 L (4.30-5.90) m/uL Hgb 12.9 L (13.0-17.5) gm/dL APTT 69.4 H (22.0-30.0) sec Chloride 109 H (98-107) mmol/L Glucose 112 H (74-99) mg/dL Assessment and Plan Assessment: 1. Bilateral pulmonary emboli with no significant heart strain 2. Left lower extremity DVT 3. History of abdominal aortic aneurysm status post endovascular repair in 2019 Plan: 1. Echocardiogram ordered and reviewed 2. No indication for any vascular surgical intervention 3. May transition to anticoagulation of your choice, will defer to primary care physician Thank you for this consultation, patient is cleared from vascular surgery. We will sign off at this time. The impression and plan of care has been dictated as directed. Dr. Bay I performed a history and examination of this patient, discussed the same with the dictator. I agree with the dictator's note ,documented as a scribe. Any additional findings or plans will be noted.
[2023-12-16] MEDS: APIXABAN 5 MG TAB PO SCH (10:53)
[2023-12-16] MEDS: TAMSULOSIN 0.4 MG CAP.ER.24H PO STA (11:17)
[2023-12-16] MEDS: Apixaban Initiation Dose--VTE 5 MG TAB PO SCH (11:31)
[2023-12-16 11:34] VITALS: BP 162/92
[2023-12-16 11:41] VITALS: PULSE 74
--- NOTE | 2023-12-16 12:54 | P.PN ---
Subjective Progress Note Date: 12/16/23 83-year-old male seen in the emergency department, December 12. He came in complaining of shortness of breath. The shortness of breath was occurring primarily with exertion. The patient was evaluated, in the emergency department, and was found to have a pulmonary embolism. I was called by the ER physician. The patient did not need an intensive care unit bed, as he was not going to have an intervention, at least not yesterday. The patient is currently on 2 L of oxygen. He is receiving IV heparin. Doppler of the left leg, was positive for DVT. His CTA did show evidence of right heart strain. An echocardiogram was ordered. This appears to be an unprovoked pulmonary embolism. The patient has a history of COPD, GERD, hyperlipidemia, prostate disease, and a abdominal aortic aneurysm, being followed by one of the vascular surgeons. He apparently had a pulmonary embolism 5 to 6 years ago. He does have a history of intermittent vertigo, as well as chronic motion sickness. White count 9.6, human 15.6, hematocrit 47.1, and platelet count is normal. D- dimer was 12.39. PTT is 92. Sodium potassium chloride CO2 anion gap BUN and creatinine all normal. Glucose 121. Lactic acid initially was 2.3. Troponin was 0.013. N-terminal proBNP was 675. Chest x-ray was normal. CTA showed moderate to large pulmonary emboli, in both lungs, RV/LV ratio is 1.2 to 1. On 12/15/2023, the patient is being seen for a follow-up. The patient is currently being treated for a left lower extremity DVT, popliteal and No significant pulmonary hypertension. Echocardiogram was done and the patient has RV failure. There is mild RV dilatation. Normal RV global systolic function. Mild pulmonary pretension. The patient meanwhile remains on anticoagulation with IV heparin. The patient has had previous history of DVT and this is obviously a recurrent event. No labs are available from today. The patient remains on oxygen and is currently on 2 L with a pulse ox of 98%. No respite difficulties. No pleurisy. No hemoptysis. No chest pain. No other new complaints otherwise for now. He is known to have COPD, prostate cancer, endovascular stent grafting history of abdominal aortic aneurysm with previous endovascular stent grafting. The patient has also had history of prostate cancer. 12/16/2023, the patient is being seen for a follow-up. The patient is currently, comfortable on room air oxygen. Denies having any respite distress. The patient was taken off IV heparin and the patient was started on anticoagulation with Eliquis. He has a DVT of the left lower extremity and pulmonary embolism. No new labs are available from today. No chest pain. No pleurisy. No hemoptysis. Bay catheter was removed and urine output is being monitored. Objective - Vital Signs Vital signs: Vital Signs Temp 98 F 12/16/23 03:05 Pulse 77 12/16/23 08:17 Resp 16 12/16/23 07:36 BP 135/74 12/16/23 07:36 Pulse Ox 97 12/16/23 07:36 FiO2 Intake & Output 12/15/23 12/16/23 12/16/23 18:59 06:59 18:59 Intake Total 440 237.514 180 Output Total 1550 2024 750 Balance -1110 -1787.486 -570 Weight 93.2 kg Intake: IV 20 Invasive Line 1 20 Intake, IV Titration 217.514 Amount Heparin Sod,Pork in 0.45% 217.514 NaCl 25,000 unit In 0.45 % NaCl 1 250ml.bag @ 18 UNITS/KG/HR 17.962 mls/hr IV .[id number] [facility] Rx#: [id number] Oral 440 180 Output: Urine 1550 2024 750 Uretheral (Bay) 50 Other: Voiding Method Indwelling Catheter Indwelling Catheter Indwelling Catheter - Exam No acute distress, oriented 3. Currently on room air oxygen and the patient is calm and comfortable HEENT examination is grossly unremarkable. Mucous membranes are moist. No oral lesions. Neck supple. Full range of motion. No adenopathy thyromegaly or neck vein d istention. Cardiovascular examination reveals regular rhythm rate. S1-S2 normal. No S3 or S4. No discernible murmur noted. Lungs reveal clear breath sounds. Breath sounds are equal bilaterally. No adventitious lung sounds including wheezes rhonchi or crackles. Abdomen soft bowel sounds are heard. No masses or tenderness. Extremities are intact. No cyanosis clubbing or edema. Skin is without rash or lesion. Neurologic examination is brief but nonfocal. - Labs CBC & Chem 7: 12/15/23 19:58 12/15/23 19:58 Labs: Abnormal Lab Results - Last 24 Hours (Table) 12/15/23 12/15/23 12/16/23 Range/Units 19:58 19:58 05:45 RBC 4.03 L (4.30-5.90) m/uL Hgb 12.9 L (13.0-17.5) gm/dL APTT 69.4 H (22.0-30.0) sec Chloride 109 H (98-107) mmol/L Glucose 112 H (74-99) mg/dL Assessment and Plan Plan: Bilateral pulmonary emboli, acute, without significant hemodynamic instability or pulmonary pretension. Please refer to the echocardiogram. This is a recurrent event and the patient will be subjected to lifelong anticoagulants and the patient has a left lower extremity popliteal DVT. Acute hypoxic respiratory failure currently on room air oxygen Shortness of breath secondary to above, improved Left lower extremity DVT, popliteal Prior history of pulmonary embolism, 5 to 6 years ago. History of COPD. History of GERD. History of hyperlipidemia. History of vertigo. History of abdominal arctic aneurysm with a previous endovascular stent grafting History of prostate cancer Plan: Patient is currently on room air oxygen Continue anticoagulation the patient was started on Eliquis Will need lifelong anticoagulants Hemodynamically stable Obtain follow-up blood work including hemoglobin and platelet counts Bay catheter was removed and will monitor urine output Will continue to follow
--- NOTE | 2023-12-20 20:27 | DS ---
DISCHARGE SUMMARY CHIEF COMPLAINT: Shortness of breath. HISTORY OF PRESENT ILLNESS AND PHYSICAL EXAMINATION: Details of this man's history and physical can be found in the initial workup. LABORATORY STUDIES: While he is in the hospital, he had laboratory studies, details of which can be found in the laboratory section of the chart. COURSE IN THE HOSPITAL: After admission, he was placed on bedrest, started on IV heparin. He was seen by Pulmonology and Vascular Surgery. There was a question as to whether or not he may be a candidate for thrombectomy. His breathing did improve and he was doing well. He was stable and it was felt that he could go home on the and he will go home on Eliquis 10 mg twice a day and be seen in the office several days. FINAL DIAGNOSES: 1. Bilateral pulmonary emboli. 2. History of hypertension. 3. History of previous pulmonary emboli. OPERATIONS: None. CONSULTATIONS: Cardiology, Pulmonology and Vascular Surgery. MMJOSE / ROXANNE: [id number] /
== END 2023-12-16 12:27 | disposition home or self-care (01) | DRG 299 ==
LOC: EC 10:33 → 3SCARD 14:05
PROVIDERS: ADMIT Family Medicine; ATTEND Family Medicine
DX: I82.432 Acute embolism and thrombosis of left popliteal vein (principal); I26.99 Other pulmonary embolism without acute cor pulmonale; J96.01 Acute respiratory failure with hypoxia; I27.20 Pulmonary hypertension, unspecified; J44.9 Chronic obstructive pulmonary disease, unspecified; I10 Essential (primary) hypertension; E78.5 Hyperlipidemia, unspecified; Z86.711 Personal history of pulmonary embolism; I08.3 Combined rheumatic disorders of mitral, aortic and tricuspid valves; Z79.82 Long term (current) use of aspirin; Z79.899 Other long term (current) drug therapy; Z85.46 Personal history of malignant neoplasm of prostate; Z86.718 Personal history of other venous thrombosis and embolism; Z86.79 Personal history of other diseases of the circulatory system; Z87.891 Personal history of nicotine dependence; Z87.19 Personal history of other diseases of the digestive system; Z88.8 Allergy status to other drugs, medicaments and biological substances; Z88.6 Allergy status to analgesic agent; Z88.1 Allergy status to other antibiotic agents
CPT/HCPCS: 36415; 71046; 71275; 80048; 80053; 83605; 83735; 83880; 84443; 84484; 85025; 85379; 85610; 85730; 93005; 93306; 93970; 94640; 94760; 96365; 96366; 99291; 99292